=== PATIENT | male | born 1955 | race Two or more races ===

== ENCOUNTER 2024-09-16 14:48 | Emergency (ER) | payer MEDICAID, SELFPAY ==
[2024-09-16 14:49] VITALS: BMI 29.7
[2024-09-16 15:50] VITALS: BP 137/72; PULSE 74; RESP 16; TEMP 37.2; O2SAT 97
--- NOTE | 2024-09-16 17:58 | XR_ITS ---
Examination: CT brain head without contrast. 2-D sagittal coronal reconstructions Date and time of exam:September 16, 2024 1817 hrs. Indications: Dizziness headaches today CTDI: vol (mGy):52.6 DLP: (mGycm):982 Technique: Multiple CT axial sections of the brain have been obtained, 5 mm slice thickness. Contrast has not been administered. 2-D sagittal, coronal reconstructions have been obtained Low dose protocols were performed. One or more of the following dose reduction techniques were used; automated exposure control, adjustment of the mA and/or KV according to patient size, use of iterative reconstruction technique. Findings: No significant ventricular enlargement. Intra-axial or extra-axial hemorrhage density is not seen. No mass effect or midline shift Basal cisterns are not remarkable. Fourth ventricle is midline. Cranial vault intact. Impression: Negative for acute hemorrhage, mass effect or midline shift
--- NOTE | 2024-09-16 18:04 | PD.EDRME ---
Rapid Medical Screening Exam [facility] Arrival date/time: 09/16/24 14:48 Chief Complaint: Dizziness Vital signs: Vital Signs Temperature 99.0 F 09/16/24 15:50 Pulse Rate 74 09/16/24 15:50 Respiratory Rate 16 09/16/24 15:50 Blood Pressure 137/72 H 09/16/24 15:50 Pulse Oximetry (%) 97 09/16/24 15:50 Oxygen Delivery Method Room Air 09/16/24 15:50 [facility] Narrative: 69-year-old patient presents emergency department with complaint of dizziness for the past 2 months. He denies head trauma. He denies focal weakness.
--- NOTE | 2024-09-16 18:07 | EKG_ITS ---
[facility] Test Date: 2024-09-16 Pat Name: NADIA GOMEZ Department: Room: - Gender: Male Entry Level Buyer: : [id number] Requested By: Jaime Monzon Order Number: [id number] Reading MD: Jaime Monzon Measurements Intervals [place] Rate: 66 P: 77 [place]: 154 QRS: 85 QRSD: 95 T: 56 QT: 380 QTc: 399 Interpretive Statements SINUS RHYTHM No previous ECG available for comparison /store/S0/[id number]/ecg/[id number].pdf
[2024-09-16 18:47] LABS: Basophils # (Auto) 0.1 Thou/mm3 (0.0-0.2); Basophils % (Auto) 1 % (0-2.5); Eosinophils # (Auto) 0.1 Thou/mm3 (0.0-0.5); Eosinophils % (Auto) 1 % (0-10); Hematocrit 49.4 % (41.0-53.0); Immature Granulocytes % (Auto) 0 % (0-0); Immature Granulocytes Auto 0.02 Thou/mm3 (0.00-0.00); Lymphocytes # (Auto) 2.3 Thou/mm3 (1.0-4.8); Lymphocytes % (Auto) 24 % (10-50); Mean Corpuscular HGB Conc 34.4 g/dl (31.0-37.0); Mean Corpuscular Hemoglobin 30.4 pg (25.0-35.0); Mean Corpuscular Volume 88 fL (80-100); Monocytes # (Auto) 0.7 Thou/mm3 (0.0-0.8); Monocytes % (Auto) 7 % (0-12); Neutrophils # (Auto) 6.4 Thou/mm3 (1.8-7.7); Neutrophils % (Auto) 67 % (37-80); Nucleated Red Blood Cell % 0 /100 WBC (0); Platelet Count 230 Thou/mm3 (140-440); RDW Standard Deviation 40.9 fL (35.1-43.9); Red Blood Count 5.59 Miln/mm3 (4.50-5.90); White Blood Count 9.5 Thou/mm3 (3.8-10.6)
[2024-09-16 19:09] LABS: Alanine Aminotransferase 13 U/L (10-49); Albumin, Serum 4.8 gm/dL (3.4-4.8); Albumin/Globulin Ratio 1.7 (1.2-2.2); Alkaline Phosphatase 90 U/L (46-116); Anion Gap 6 (7-16); Aspartate Amino Transferase 14 U/L (0-34); BUN/Creatinine Ratio 18 Ratio (12-20); Bilirubin,Total 2.4 mg/dL (0.3-1.2); Blood Urea Nitrogen 16 mg/dL (9-23); Calcium 9.5 mg/dL (8.3-10.6); Calcium (Corrected) 9.5 mg/dL (8.5-10.1); Carbon Dioxide 28.7 mMol/L (20.0-31.0); Chloride 104 mMol/L (98-107); Creatinine (Component) 0.9 mg/dL (0.6-1.3); Globulin 2.8 gm/dL (2.3-3.5); Glucose 99 mg/dL (74-106); Osmolality,Calculated 278 (275-295); Potassium 4.3 mMol/L (3.4-5.1); Sodium 139 mMol/L (136-145); Total Protein 7.6 gm/dL (5.7-8.2); Troponin I < 0.002 ng/mL (0.0-0.045); eGFR > 60 See Note
--- NOTE | 2024-09-16 19:46 | PRELIM_ITS ---
CT scan of the head without intravenous contrast (axial sections with sagittal and coronal reformats) September 16, 2024 1817 hours Clinical history: dizziness Comparison: No prior study is available for comparison. Findings:There is no evidence of intracranial hemorrhage, mass effect or midline shift. T here are periventricular white matter hypodensities, compatible with chronic small vessel ischemia. T here is moderate volume loss. The calvarium is unremarkable. There is moderate mucosal thickening in the right maxillary sinus. The mastoid air cells and the other visualized paranasal sinuses are clear .Impression:No evidence of intracranial hemorrhage, mass effect or midline shift.Periventricular equipment scheduler italo small vessel ischemia and volume loss. Report Electronically Signed By: Pushpa Osorio 09/16/2024 7:45 :58 PM [EST]
[2024-09-16 19:51] VITALS: BP 123/73; PULSE 66; RESP 19; TEMP 37; O2SAT 95
[2024-09-16 23:45] VITALS: BP 128/76; PULSE 89; RESP 18; TEMP 37.1; O2SAT 97
[2024-09-17 00:28] LABS: Collection Type, Urine Clean Catch; RBC,Urine 0 /hpf (0-3); WBC,Urine 0 /hpf (0-5)
[2024-09-17 00:35] LABS: Bilirubin,Urine Negative (Negative); Blood,Urine Negative (Negative); Clarity,Urine Clear (Clear/Hazy); Color,Urine Yellow (Lt Yel-Yel); Glucose, Urine Negative (Negative); Ketones,Urine 1+ (Negative); Leukocyte Esterase,Urine Negative (Negative); Nitrite,Urine Negative (Negative); Protein,Urine Trace (Neg - Trace); Specific Gravity,Urine 1.029 (1.001-1.035); Squamous Epithelial Cell,Urine 1 /hpf (0-5)
--- NOTE | 2024-09-17 01:36 | PD.EDDIZZY ---
ED Dizzyness RME/HPI General Chief Complaint: Dizziness Stated Complaint: DIZZINESS, HEADACHE, NAUSEA Time Seen by Provider: 09/17/24 01:36 Arrival date/time: 09/16/24 14:48 69 year old male present to emergency room with c/o of dizziness, headache today . pt has history fo vertigo and takes meclazine as need. LOCATION: head SEVERITY: Symptoms are described as being severe with limitations on activities of daily living CONTEXT: The patient is unable to identify any inciting events. DURATION/TIMING: The symptoms started approximately 1 day ASSOCIATED SYMPTOMS: The patient is unable to identify any other associated symptoms. MODIFYING FACTORS: The patient is unable to identify any alleviating or aggravating symptoms. PERTINENT ROS: no fevers, no cough, no pleuritic pain, no ripping or tearing sensations, denies any lower extremity edema and no unilateral swelling, no chest pain/shortness of breath no diarrhea, no rash no loc/syncope episode no abd/back pain no dsyuria,urgency,frequency REVIEW OF SYSTEMS: See History of Present Illness - with the exception of those mentioned in the history of present illness, all other systems reviewed and reported as negative GENERAL: In general the patient is awake, interactive, in an emergency department gurney. HEAD/EYES/EARS/NOSE/THROAT: + right ear + excessive cerumen wax, left ear wnl, TM intact normo-cephalic, atraumatic, mucus membranes are moist, anicteric, palpebral conjunctiva is pink, trachea is midline. CARDIOVASCULAR: regular rate and regular rhythm, no murmurs, heart sounds are not distant, strong pulses in all four extremities that are equal and symmetric bilateral upper and lower extremities, normal capillary refill. CHEST/PULMONARY: normal chest rise and fall, good air movement, clear to auscultation bilaterally, normal inspiratory to expiratory ratios without evidence of respiratory distress. NECK: No midline/Paraspinal tenderness, no step off ROM/Strenght intact No Kernig and bruzinski sign. No trauma ABDOMEN: soft, not tender, no masses appreciated BACK: normal range of motion without pain. NEUROLOGICAL: cranio-facial features are symmetric, moves all four extremities equally without obvious limitations or weakness. EXTREMITY: no tenderness to palpation over the long bones or large joints of the bilateral upper and lower extremities, no joint swelling, no joint erythema, no signs of trauma, no unilateral leg swelling and no peripheral edema. SKIN: warm, dry, well-perfused, no jaundice, no rash, no telangiectasias or petechia. PSYCH: calm, cooperative, no evidence of psychosis or agitation RME / HPI RME / HPI Narrative: 69-year-old patient presents emergency department with complaint of dizziness for the past 2 months. He denies head trauma. He denies focal weakness. Related Data Home Medications ?Medication ?Instructions ?Recorded ?Confirmed Levothyroxine * (SYNTHROID *) 50 mcg PO QDAY #0 tabs 06/02/17 Previous Rx's ?Medication ?Instructions ?Recorded Hydrocodone/Acetaminophen * (NORCO 1 tab PO Q6H PRN ABDOMINAL PAIN 06/03/17 5/325 *) #30 tabs meclizine 25 mg tablet 25 mg PO BID PRN dizziness #30 tabs 09/17/24 Allergies Allergy/AdvReac Type Severity Reaction Status Date / Time No Known Allergies Allergy Verified 09/16/24 14:49 Course Course Course Narrative: Based on History, Exam, and Findings, presentation not consistent with syncope, seizure, stroke, meningitis, symptomatic anemia (gastrointestinal bleed), Increased ICP (cerebral tumor/mass), ICH. Additionally, I have a low suspicion for AOM, labyrinthitis, or other infectious process. right ear irrigation, improved symptoms Reassessment: Prior to discharge symptoms controlled, patient well appearing. Disposition:? Discharge. Strict return precautions discussed w/ full understanding. Advise follow up with primary care provider within 24-48 hours.? Quality Measures none Orders Category Date Time Status ED Ear Irrigation X1 Care 09/17/24 01:39 Active EKG (ED ONLY) *Do not use* NOW Care 09/16/24 18:[address] head/brain wo con Stat Exams 09/16/24 17:58 Completed EKG (ED Only) Stat Exams 09/16/24 18:07 Draft CBC Stat Lab 09/16/24 18:26 Completed Comprehensive Metabolic Panel Stat Lab 09/16/24 18:26 Completed Troponin I Stat Lab 09/16/24 18:26 Completed Urinalysis Stat Lab 09/17/24 00:09 Completed Urine Culture Stat Lab 09/17/24 00:09 Received Vital Signs Vital signs: Vital Signs Temperature 99.0 F 09/16/24 15:50 Pulse Rate 74 09/16/24 15:50 Respiratory Rate 16 09/16/24 15:50 Blood Pressure 137/72 H 09/16/24 15:50 Pulse Oximetry (%) 97 09/16/24 15:50 Oxygen Delivery Method Room Air 09/16/24 15:50 Procedures -ED EKG Interpretation #1: Date of EK09/17/24 Rate: 66 Interpretation: Reviewed by me EKG Impression: Normal sinus rhythm, No acute ST-T changes, No ectopy and No ischemic changes Dizziness Patient data External records reviewed:: [facility] previous records Clinical information provided by:: patient Social determinants that could affect healthcare access:: none Patient has the following chronic illnesses:: as stated in chart How is presenting disease/condition affected by chronic disease/condition?: uneffected by Evaluation data The following diagnostics were reviewed and interpreted by me:: lab results, radiology exam(s) and EKG tracing(s) Lab and/or radiology exams considered but not ordered:: none Interpretation Summary: ct: no acute findings cbc/cmp/trop wnl Medications / Prescriptions Medications or Prescriptions considered but not ordered:: none Medication administrations:: none Consultations Consultation(s) initiated? (list below): No Diagnosis Most likely diagnosis given after review of the tests above:: vertigo, Admission Indicated Admission indicated?: not indicated Admission Request Was there a request for admission?: No Disposition Plan Disposition Plan: Discharge Discharge Attestation Discharge Attestation: The patient and all family members were given an opportunity to ask questions and understood the discharge instructions. Discharge instructions specifically effects, indications for sooner follow up or return to the emergency department, and the expected course of current diagnosis. Patient condition: Stable Discharge Plan Plan Patient Disposition: HOME (Self Care) Prescriptions/Referrals Prescriptions/Med Rec: New meclizine 25 mg tablet 25 mg PO BID PRN (Reason: dizziness) Qty: 30 0RF No Action Levothyroxine * (SYNTHROID *) 50 MCG tablet 50 mcg PO QDAY Qty: 0 Hydrocodone/Acetaminophen * (NORCO 5/325 *) 1 TAB tablet 1 tab PO Q6H PRN (Reason: ABDOMINAL PAIN) Qty: 30 0RF Referrals: Theron Pagan MD [Primary Care Provider] - In 1 week Problem List Clinical Impression: Vertigo, Excessive cerumen in right ear canal Patient/Caregiver Discharge Instructions Education Materials: ED Dizziness, Uncertain Cause Print Language: Slovenian Stand Alone Forms: Dahlia Award Info., Patient Portal Info Letter
== END 2024-09-17 02:06 | disposition home or self-care (01) ==
PROVIDERS: Emergency Provider Emergency Medicine; PCP Family Medicine
DX: R42 Dizziness and giddiness (principal); H61.21 Impacted cerumen, right ear
CPT/HCPCS: 36415; 70450; 80053; 81001; 84484; 85025; 87077; 87086; 87186; 93005; 99284

== ENCOUNTER 2024-10-15 23:08 | Emergency (ER) | payer MEDICAID, SELFPAY ==
[2024-10-15 23:10] VITALS: BMI 27.6
[2024-10-15 23:43] VITALS: BP 151/77; PULSE 80; RESP 18; TEMP 37.2; O2SAT 95
[2024-10-16] MEDS: KETOROLAC INJ 60 MG/2 ML VIAL 30 MG IM (00:36)
[2024-10-16 00:57] LABS: Basophils % (Auto) 0 % (0-2.5); Eosinophils # (Auto) 0.1 Thou/mm3 (0.0-0.5); Eosinophils % (Auto) 1 % (0-10); Hematocrit 47.2 % (41.0-53.0); Hemoglobin 16.6 g/dL (13.5-16.0); Immature Granulocytes % (Auto) 0 % (0-0); Immature Granulocytes Auto 0.03 Thou/mm3 (0.00-0.00); Lymphocytes # (Auto) 1.1 Thou/mm3 (1.0-4.8); Lymphocytes % (Auto) 10 % (10-50); Mean Corpuscular HGB Conc 35.2 g/dl (31.0-37.0); Mean Corpuscular Volume 88 fL (80-100); Monocytes # (Auto) 0.6 Thou/mm3 (0.0-0.8); Monocytes % (Auto) 5 % (0-12); Neutrophils # (Auto) 9.2 Thou/mm3 (1.8-7.7); Neutrophils % (Auto) 84 % (37-80); Nucleated Red Blood Cell % 0 /100 WBC (0); Platelet Count 236 Thou/mm3 (140-440); RDW Standard Deviation 42.5 fL (35.1-43.9); Red Blood Count 5.35 Miln/mm3 (4.50-5.90); White Blood Count 10.9 Thou/mm3 (3.8-10.6)
[2024-10-16 01:15] LABS: Alanine Aminotransferase 13 U/L (10-49); Albumin, Serum 4.6 gm/dL (3.4-4.8); Albumin/Globulin Ratio 1.5 (1.2-2.2); Alkaline Phosphatase 82 U/L (46-116); Anion Gap 8 (7-16); Aspartate Amino Transferase 14 U/L (0-34); BUN/Creatinine Ratio 23 Ratio (12-20); Bilirubin,Total 2.3 mg/dL (0.3-1.2); Blood Urea Nitrogen 18 mg/dL (9-23); Calcium 9.5 mg/dL (8.3-10.6); Calcium (Corrected) 9.5 mg/dL (8.5-10.1); Carbon Dioxide 27.6 mMol/L (20.0-31.0); Chloride 104 mMol/L (98-107); Creatinine (Component) 0.8 mg/dL (0.6-1.3); Estimated Creatinine Clearance 83.7 mL/min (>60); Glucose 122 mg/dL (74-106); Lipase 49 U/L (12-53); Osmolality,Calculated 282 (275-295); Potassium 4.1 mMol/L (3.4-5.1); Sodium 140 mMol/L (136-145); Total Protein 7.6 gm/dL (5.7-8.2); eGFR > 60 See Note
--- NOTE | 2024-10-16 01:44 | PD.EDRME ---
Rapid Medical Screening Exam [facility] Arrival date/time: 10/15/24 23:08 69-year-old male presents emergency department complaining of umbilical hernia pain and increase in size that he has been unable to reduce. Chief Complaint: Abdominal Pain Time Seen by Provider: 10/15/24 23:39 Vital signs: Vital Signs Temperature 99.0 F 10/15/24 23:43 Pulse Rate 80 10/15/24 23:43 Respiratory Rate 18 10/15/24 23:43 Blood Pressure 151/77 H 10/15/24 23:43 Pulse Oximetry (%) 95 10/15/24 23:43 Oxygen Delivery Method Aerosol Mask 10/15/24 23:43 Vital signs reviewed by provider: Yes
[2024-10-16 06:07] VITALS: BP 118/78; PULSE 69; RESP 19; TEMP 36.7; O2SAT 96
[2024-10-16 06:16] VITALS: BP 132/71; PULSE 64
--- NOTE | 2024-10-16 06:29 | XR_ITS ---
Examination: CT abdomen and pelvis without contrast. Coronal 3-D reconstructions. Sagittal 2-D reconstructions. Date and time of exam:October 16, 2024 at 0648 hours INDICATIONS: Abdominal pain umbilical mass today, clinical diagnosis incarcerated umbilical hernia CTDI: vol (mGy): 7.02 DLP: (mGycm): 421 Technique: Axial images of the abdomen have been obtained, 3 mm slice thickness Intravenous contrast material has not been administered. Low dose protocols were performed. One or more of the following dose reduction techniques were used; automated exposure control, adjustment of the mA and/or KV according to patient size, use of iterative reconstruction technique. Findings: No focal liver or splenic lesions Absent gallbladder No pancreatic or adrenal mass No renal or ureteral calculi, no hydronephrosis Anterior right lateral abdominal wall 17 mm hernia defect containing incarcerated fat No bowel present in this hernia defect No bowel obstruction Normal appendix No diverticulitis Fat-containing right inguinal hernia defect Large left inguinal hernia defect, 28 mm, containing sigmoid colon but no definite incarcerated bowel. IMPRESSION: Anterior right lateral abdominal wall 17 mm hernia defect containing incarcerated fat No bowel present in this hernia defect Fat-containing right inguinal hernia defect 28 mm left inguinal hernia defect containing sigmoid colon but no definite incarcerated bowel Recommend surgical evaluation
--- NOTE | 2024-10-16 08:08 | EDNOTE_ITS ---
ED Abdominal Pain RME/HPI General Chief Complaint: Abdominal Pain Stated complaint: UMBILICAL HERNIA PAIN Time seen by provider: 10/15/24 23:39 Arrival date/time: 10/15/24 23:08 RME / HPI RME / HPI narrative: 10/15/24 23:08 69-year-old male presents emergency department complaining of umbilical hernia pain and increase in size that he has been unable to reduce. DR. VILLALBA MAIN ED EVALUATION 69 year old male with history of radical prostatectomy 2 years ago and has had an umbilical and inguinal hernia since presents to the ED for evaluation of umbilical hernia pain beginning yesterday. Reportedly felt the hernia come out yesterday and is usually able to reduce. However, yesterday states he was unable to and the hernia was accompanied by moderate-severe pain that radiated to his back. Reports while in the ED the pain improved and during my evaluation states he has no pain. Denies fevers, chills, nausea, vomiting, diarrhea, constipation. No other complaints. Related Data Home Medications ?Medication ?Instructions ?Recorded ?Confirmed Levothyroxine * (SYNTHROID *) 50 mcg PO QDAY #0 tabs 0 06/02/17 Previous Rx's ?Medication ?Instructions ?Recorded Hydrocodone/Acetaminophen * (NORCO 1 tab PO Q6H PRN AB DOMINAL PAIN 06/03/17 5/325 *) #30 tabs meclizine 25 mg tablet 25 mg PO BID PRN dizziness # 30 tabs 09/17/24 Allergies Allergy/AdvReac Type Severity Reaction Status Date / Time No Known Allergies Allergy Verified 10/15/24 23:17 Review of Systems Review of Systems Narrative Review of Systems: Gen: No fever, no chills, no weight loss EYES: No discharge, no visual changes, no pain HEENT: No ear pain, no congestion, no sore throat PULM: no shortness of breath, no cough, no congestion CV: No chest pain, no dyspnea on exertion, no palpitations, no chest tightness GI: No nausea, no vomiting, no diarrhea, + pain, no constipation : No frequency, no urgency,? no dysuria Musc/skel: No joint pain Skin: No rash, no ecchymosis, no lesions Neuro: No weakness, no headache Past Medical History Past Medical History CARDIAC: Negative Congestive Heart Failure RESPIRATORY: Negative Chronic Obstructive Pulmonary Disease (COPD) GENITOURINARY: Negative Renal Disease ENDOCRINE: Negative Diabetes Mellitus Type 1 or Diabetes Mellitus Type 2 Social History SMOKING STATUS: Never smoker ED Exam Narrative Physical exam: GENERAL APPEARANCE: AxOx4, no obvious distress, nontoxic appearing HEENT: NC, AT. MMM. EOMI, clear conjunctiva, oropharynx clear. NECK: Supple without lymphadenopathy. No stiffness or restricted ROM. HEART: Normal rate and regular rhythm, normal S1/S1, no m/r/g LUNGS: CTAB, moving air well. No crackles or wheezes are heard. ABDOMEN: Soft, nontender, nondistended with good bowel sounds heard. Umbilical hernia that is reducible, no redness, no tenderness, no signs of incarceration. Also noted to have a left inguinal hernia that is reducible, without any redness or tenderness. BACK: No midline C/T/L spine pain or deformity, No CVAT, no obvious deformity. EXTREMITIES: Without cyanosis, clubbing or edema. MUSCULOSKELETAL: FROM of all major joints, no chest tenderness NEUROLOGICAL: Grossly nonfocal. Alert and oriented, moving all 4 extremities. CN not formally tested but appear grossly intact. Skin: Warm and dry without any rash. Course Quality Measures none Orders Category Date Time Status CT abdomen pelvis wo con Stat Exams 10/16/24 06:29 Completed CBC Stat Lab 10/15/24 00:29 Completed CMP [Comprehensive Metabolic Panel] Stat Lab 10/15/24 00:29 Completed Lipase Stat Lab 10/15/24 00:29 Completed Ketorolac Inj [Toradol Inj] Med 10/15/24 23:59 Discontinued 30 mg IM X1 ONE Reevaluation(s) Reevaluation #1: Patient at this time reports no pain. Patient remains clinically stable throughout the emergency department visit. We reviewed all the results, analysis, and treatment plans. Patient is amenable to discharge. Strict return precautions were outlined. Patient was discharged in stable condition. Time: 08:15 Vital Signs Vital signs: Vital Signs Temperature 99.0 F 10/15/24 23:43 Pulse Rate 80 10/15/24 23:43 Respiratory Rate 18 10/15/24 23:43 Blood Pressure 151/77 H 10/15/24 23:43 Pulse Oximetry (%) 95 10/15/24 23:43 Oxygen Delivery Method Aerosol Mask 10/15/24 23:43 Pulse ox is 96% on room air which is adequate. Abdominal Pain MDM MDM Narrative MDM Narrative:: IKia am scribing for and in the presence of Dr. Villalba. Patient data External records reviewed:: [facility] previous records (I reviewed ED visit on 09/17/2024) Clinical information provided by:: patient Social determinants that could affect healthcare access:: none Patient has the following chronic illnesses:: radical prostatectomy 2 years ago and has had an umbilical hernia since How is presenting disease/condition affected by chronic disease/condition?: exacerbated by Evaluation data The following diagnostics were reviewed and interpreted by me:: lab results and radiology exam(s) Lab and/or radiology exams considered but not ordered:: None Interpretation Summary: Ordering Physician: Dori MORGAN),Jose JOHNSON Date of Service: 10/16/24 Procedure(s): CT abdomen pelvis wo con Accession Number(s): [id number] cc: J Carlos Christian PA-C; Dori MORGAN),Jose JOHNSON; Flex Bourgeois MD~ Examination: CT abdomen and pelvis without contrast. Coronal 3-D reconstructions. Sagittal 2-D reconstructions. Date and time of exam:October 16, 2024 at 0648 hours INDICATIONS: Abdominal pain umbilical mass today, clinical diagnosis incarcerated umbilical hernia CTDI: vol (mGy): 7.02 DLP: (mGycm): 421 Technique: Axial images of the abdomen have been obtained, 3 mm slice thickness Intravenous contrast material has not been administered. Low dose protocols were performed. One or more of the following dose reduction techniques were used; automated exposure control, adjustment of the mA and/or KV according to patient size, use of iterative reconstruction technique. Findings: No focal liver or splenic lesions Absent gallbladder No pancreatic or adrenal mass No renal or ureteral calculi, no hydronephrosis Anterior right lateral abdominal wall 17 mm hernia defect containing incarcerated fat No bowel present in this hernia defect No bowel obstruction Normal appendix No diverticulitis Fat-containing right inguinal hernia defect Large left inguinal hernia defect, 28 mm, containing sigmoid colon but no definite incarcerated bowel. IMPRESSION: Anterior right lateral abdominal wall 17 mm hernia defect containing incarcerated fat No bowel present in this hernia defect Fat-containing right inguinal hernia defect 28 mm left inguinal hernia defect containing sigmoid colon but no definite incarcerated bowel Recommend surgical evaluation Dictated By:Flex Bourgeois MD Signed By:<Electronically signed by Flex Bourgeois MD in OV>10/16/24 0711 Medications / Prescriptions Medications or Prescriptions considered but not ordered:: None Medication administrations:: Medication Administration History Discontinued Medications Ketorolac Tromethamine (Ketorolac Inj 60 Mg/2 Ml Vial) 30 mg IM X1 ONE Stop: 10/16/24 00:00 Last Admin: 10/16/24 00:36 Dose: 30 mg Documented By: KF See above Consultations Consultation(s) initiated? (list below): No Diagnosis Differential diagnosis abdominal pain: abdominal pain, constipation, diverticulitis, small bowel obstruction and other (Umbilical hernia, inguinal hernia, incarcerated hernia ) Most likely diagnosis given after review of the tests above:: Inguinal hernia Admission Indicated Admission indicated?: not indicated Admission Request Was there a request for admission?: No Disposition Plan Disposition Plan: Discharge Discharge Attestation Discharge Attestation: The patient and all family members were given an opportunity to ask questions and understood the discharge instructions. Discharge instructions specifically effects, indications for sooner follow up or return to the emergency department, and the expected course of current diagnosis. Patient condition: Stable Discharge Plan Plan Patient Disposition: HOME (Self Care) Prescriptions/Referrals Prescriptions/Med Rec: No Action Levothyroxine * (SYNTHROID *) 50 MCG tablet 50 mcg PO QDAY Qty: 0 Hydrocodone/Acetaminophen * (NORCO 5/325 *) 1 TAB tablet 1 tab PO Q6H PRN (Reason: ABDOMINAL PAIN) Qty: 30 0RF meclizine 25 mg tablet 25 mg PO BID PRN (Reason: dizziness) Qty: 30 0RF Referrals: J Carlos Christian PA-C [Primary Care Provider] - In 1 week Problem List Clinical Impression: Inguinal hernia Patient/Caregiver Discharge Instructions Education Materials: ED Hernia (Adult) Additional Instructions: Seguimiento con durham m?dico de atenci?n primaria. Regrese al departamento de emergencias antes si los s?ntomas empeoran o si nota algo nuevo, Print Language: Albanian Stand Alone Forms: Dahlia Award Info., Patient Portal Info Letter
[2024-10-16 08:17] VITALS: BP 129/71; PULSE 66; RESP 17; TEMP 36.7; O2SAT 96
== END 2024-10-16 08:25 | disposition home or self-care (01) ==
PROVIDERS: Emergency Provider Emergency Medicine; PCP Family Medicine
DX: K40.90 Unilateral inguinal hernia, without obstruction or gangrene, not specified as recurrent (principal)
CPT/HCPCS: 36415; 74176; 80053; 81001; 83690; 85025; 96372; 99284; J1885

== ENCOUNTER 2025-07-08 17:21 | Inpatient (IN) | payer MEDICAID, SELFPAY ==
[2025-07-08] VITALS (12 sets, daily range): BP systolic 153–179; BP diastolic 80–103; PULSE 76–99; RESP 12–19; TEMP 36.6–37.6; O2SAT 95–98
--- NOTE | 2025-07-08 17:49 | PD.EDRME ---
Rapid Medical Screening Exam RME Arrival date/time: 07/08/25 17:21 This is a 70-year-old male that comes into the emergency room with complaints of right inguinal area pain. Patient states he has bilateral inguinal hernias and he is usually able to reduce them on his own. Patient states the 1 on his right is bothering him. Patient also complains of dysuria. I have greeted and performed a focused initial assessment of this patient. Initial appropriate labs ordered at this time. A comprehensive ED assessment and evaluation of the patient and analysis of all test and completion of medical decision making process will be conducted by additional ED provider. Chief Complaint: General Adult/Misc Complain Time Seen by Provider: 07/08/25 17:23 Vital signs: Vital Signs Temperature 99.7 F 07/08/25 17:28 Pulse Rate 98 07/08/25 17:28 Respiratory Rate 18 07/08/25 17:28 Blood Pressure 168/80 H 07/08/25 17:28 Pulse Oximetry (%) 95 07/08/25 17:28 Oxygen Delivery Method Room Air 07/08/25 17:28 Exam: Alert and oriented, pain to palpation to right inguinal area. GCS 15 Clinical Impression: Incarcerated right inguinal hernia, UTI
[2025-07-08 18:12] LABS: Basophils # (Auto) 0.0 Thou/mm3 (0.0-0.2); Basophils % (Auto) 0 % (0-2.5); Eosinophils # (Auto) 0.0 Thou/mm3 (0.0-0.5); Eosinophils % (Auto) 0 % (0-10); Hematocrit 47.1 % (41.0-53.0); Hemoglobin 16.8 g/dL (13.5-16.0); Immature Granulocytes Auto 0.04 Thou/mm3 (0.00-0.00); Lymphocytes # (Auto) 0.9 Thou/mm3 (1.0-4.8); Lymphocytes % (Auto) 7 % (10-50); Mean Corpuscular HGB Conc 35.7 g/dl (31.0-37.0); Mean Corpuscular Hemoglobin 31.9 pg (25.0-35.0); Mean Corpuscular Volume 89 fL (80-100); Monocytes # (Auto) 0.6 Thou/mm3 (0.0-0.8); Monocytes % (Auto) 5 % (0-12); Neutrophils # (Auto) 10.8 Thou/mm3 (1.8-7.7); Neutrophils % (Auto) 88 % (37-80); Nucleated Red Blood Cell # 0.00 Thou/mm3 (0.00-0.00); Nucleated Red Blood Cell % 0 /100 WBC (0); Platelet Count 232 Thou/mm3 (140-440); RDW Standard Deviation 40.9 fL (35.1-43.9); Red Blood Count 5.27 Miln/mm3 (4.50-5.90); White Blood Count 12.3 Thou/mm3 (3.8-10.6)
--- NOTE | 2025-07-08 18:41 | XR_ITS ---
Examination: CT abdomen and pelvis without contrast. Coronal 3-D reconstructions. Sagittal 2-D reconstructions. Date and time of exam: July 08, 2025, 1904 hours, comparison October 16, 2024 INDICATIONS: Right lower abdomen pain today, bilateral inguinal hernias CTDI: vol (mGy): 8.11 DLP: (mGycm): 451 Technique: Axial images of the abdomen have been obtained, 3 mm slice thickness Intravenous contrast material has not been administered. Low dose protocols were performed. One or more of the following dose reduction techniques were used; automated exposure control, adjustment of the mA and/or KV according to patient size, use of iterative reconstruction technique. Findings: No focal liver or splenic lesions Absent gallbladder Multiple fluid distended small bowel loops 12 mm umbilical hernia containing incarcerated fat Normal appendix No diverticulitis Bilateral inguinal hernias, on the right side containing small bowel and on the left side containing colon Advanced degenerative disc disease L5-S1 IMPRESSION: Small bowel obstruction, likely secondary to incarcerated small bowel in a right inguinal hernia Left inguinal hernia containing colon
--- NOTE | 2025-07-08 18:41 | PD.EDADULT ---
ED General RME/HPI General Chief complaint: General Adult/Misc Complain Stated complaint: SUPRAPUBIC PAIN, 03/22 Time Seen by Provider: 07/08/25 17:23 Arrival date/time: 07/08/25 17:21 CC: Right inguinal hernia pain HPI patient has bilateral inguinal hernias the right side greater than the left, patient said the pain is ongoing for several days but patient has had the hernias for 2 to 3 years. Patient denies chest pain shortness of breath or difficulty breathing. RME / HPI RME / HPI narrative: 07/08/25 17:21 This is a 70-year-old male that comes into the emergency room with complaints of right inguinal area pain. Patient states he has bilateral inguinal hernias and he is usually able to reduce them on his own. Patient states the 1 on his right is bothering him. Patient also complains of dysuria. I have greeted and performed a focused initial assessment of this patient. Initial appropriate labs ordered at this time. A comprehensive ED assessment and evaluation of the patient and analysis of all test and completion of medical decision making process will be conducted by additional ED provider. Exam: Alert and oriented, pain to palpation to right inguinal area. GCS 15 Impression: Incarcerated right inguinal hernia, UTI Related Data Home Medications ?Medication ?Instructions ?Recorded ?Confirmed Levothyroxine * (SYNTHROID *) 50 mcg PO QDAY #0 tabs 06/02/17 Previous Rx's ?Medication ?Instructions ?Recorded Hydrocodone/Acetaminophen * (NORCO 1 tab PO Q6H PRN ABDOMINAL PAIN 06/03/17 5/325 *) #30 tabs meclizine 25 mg tablet 25 mg PO BID PRN dizziness #30 tabs 09/17/24 Allergies Allergy/AdvReac Type Severity Reaction Status Date / Time No Known Allergies Allergy Verified 07/08/25 17:23 Review of Systems Review of Systems Narrative Review of Systems: GEN: No fever, no chills, no weight loss EYES: No discharge, no visual changes, no pain HEENT: No ear pain, no congestion, no sore throat PULM: No shortness of breath, no cough, no congestion CV: No chest pain, no dyspnea on exertion, no palpitations GI: No nausea, no vomiting, no diarrhea, no pain, no constipation : No frequency, no urgency, no dysuria MUSC/SKEL: No joint pain, no back pain SKIN: No rash PSYCH: No hallucinations, no depression HEME/LYMPH: No easy bleeding or bruising tendencies NEURO: No weakness, no headache Past Medical History Past Medical History CARDIAC: Negative Congestive Heart Failure RESPIRATORY: Negative Chronic Obstructive Pulmonary Disease (COPD) GENITOURINARY: Negative Renal Disease ENDOCRINE: Negative Diabetes Mellitus Type 1 or Diabetes Mellitus Type 2 Social History SMOKING STATUS: Never smoker ED Exam Narrative Physical exam: [General: In moderate discomfort but not in any acute distress Head normocephalic HEENT: Within acceptable limits Neck is supple nontender Chest equal chest rise nontender to palpation Respiratory: Clear to auscultation no wheezes crackles or rubs CV: Rate rhythm is regular no murmurs rubs or clicks Abdomen is flat, with bulging at the pubis mounds, firm in nature tender to palpation no erythema no open lesions. Both left and right aspect of pubis mons are bump bulging. Right side is firm left side is soft both are nonreproducible. Back: No CVA tenderness no spinous process tenderness from cervical spine thoracic and lumbar spine Skin: Intact no petechiae rash induration ulceration or crepitus Extremities: Moving all extremity against resistance cap refill less than 2 seconds neurosensory intact Neuro: Awake alert oriented x3 Glascow coma 15 no focal deficits] Course Course Course Narrative: Patient is case discussed with Dr. Farrar the surgeon, she was informed of the patient's clinical condition presentation laboratory results and imaging, given the patient has an SBO secondary to an incarcerated hernia she agrees to accept the patient as consult and admit the patient to the hospitalist. Patient is in agreement with this plan patient's last meal was at 11 AM. He is currently n.p.o. and will probably go to the [facility]. Patient's case presented to the resident for Dr. Rothman who agrees to accept the patient for admission. Quality Measures none Orders Category Date Time Status COVID-19 Screening Questionnaire NOW Care 07/08/25 19:39 Completed Decision to Admit X1 Care 07/08/25 19:39 Completed EKG (ED ONLY) *Do not use* NOW Care 07/08/25 19:49 Completed NG / OG Tube to LIS NOW Care 07/08/25 19:37 Completed NPO NOW Care 07/08/25 19:39 Completed Saline [Insert IV] NOW Care 07/08/25 19:37 Completed Consult to General Surgery Stat Cons 07/08/25 19:38 Ordered Diet NPO (NOW) Diet 07/08/25 19:[address] abdomen pelvis wo con Stat Exams 07/08/25 18:41 Completed EKG (ED Only) Stat Exams 07/08/25 19:49 Draft XR chest 1V Stat Exams 07/08/25 19:37 Completed CBC Stat Lab 07/08/25 18:01 Completed Comprehensive Metabolic Panel Stat Lab 07/08/25 18:01 Completed Lactic Acid [Lactate (Lactic Acid)] Stat Lab 07/08/25 20:51 Completed Lipase Stat Lab 07/08/25 18:01 Completed PT [Prothrombin Time with INR] Stat Lab 07/08/25 18:01 Completed PTT [Partial Thromboplastin Time] Stat Lab 07/08/25 18:01 Completed Urinalysis, C/S if Indicated Stat Lab 07/08/25 18:46 Completed Bupivacaine Mpf 0.5% [Sensorcaine-Mpf Inj 0.5%] Med 07/08/25 20:22 Discontinued 30 ml .ROUTE .STK-MED ONE Morphine* Inj Med 07/08/25 19:39 Discontinued 4 mg IVP X1 ONE Ondansetron Inj [Zofran Inj] Med 07/08/25 19:39 Discontinued 4 mg IVP X1 ONE Sodium Chloride 0.9% 1000 ml [Ns] 1,000 ml Med 07/08/25 19:38 Active IV 100 mls/hr Vital Signs Vital signs: Vital Signs Temperature 99.7 F 07/08/25 17:28 Pulse Rate 98 07/08/25 17:28 Respiratory Rate 18 07/08/25 17:28 Blood Pressure 168/80 H 07/08/25 17:28 Pulse Oximetry (%) 95 07/08/25 17:28 Oxygen Delivery Method Room Air 07/08/25 17:28 Discharge Plan Plan Patient Disposition: Other Care w/in Hosp (SDC/RED) Patient condition on transfer: Stable Problem List Clinical Impression: Incarcerated inguinal hernia, SBO (small bowel obstruction), Abdominal pain PA/MARTIAL ARTS INSTRUCTOR Supervising Physician PA/MARTIAL ARTS INSTRUCTOR Supervising Physician: Jose Tim ENP [facility] Clinical Information Provided by: patient Medical Records reviewed [facility] Meds/Rx considered, not ordered None Labs/Rad/Tests considered, not ordered None Chronic Illness/Social Conditions Explain: Inguinal hernias hypothyroidism EKG Interpretation EKG #1: EKG Interpretation: EKG performed at 2030 shows a ventricular rate of 73 LA interval 147 QRS of 100 QTc of 408 there is normal sinus rhythm. Labs Labs: interpreted by me Lab(s) Interpretation(s): CBC shows a mild leukocytosis of 12.3 hemoglobin of 16.8 hematocrit of 47.1 no thrombocytopenia Imaging Imaging interpretation: interpreted by me Medication Administration(s) Medication Administration History Acetaminophen (Acetaminophen 325 Mg Tablet) 650 mg PO Q6H PRN PRN Reason: Fever >100.3 Stop: 08/07/25 20:31 Acetaminophen (Acetaminophen 325 Mg Tablet) 650 mg PO Q6H PRN PRN Reason: PAIN SCALE 1-3 (mild Stop: 08/07/25 20:31 Heparin Sodium (Porcine) (Heparin Sod Inj 5000 Unit/Ml Vial) 5,000 unit SC Q8HR GILSON On Hold: 07/08/25 22:00 Resume: 07/09/25 09:00 Stop: 07/22/25 21:59 Sodium Chloride (Ns) 1,000 mls @ 100 mls/hr IV .Q10H GILSON Stop: 08/07/25 19:37 Last Admin: 07/08/25 20:26 Dose: 100 mls/hr Documented By: GEORGE Levothyroxine Sodium (Levothyroxine Sodium 100 Mcg Tablet) 100 mcg PO ACBR GILSON Stop: 08/08/25 05:59 Lisinopril (Lisinopril 2.5 Mg Tablet) 10 mg PO QDAY GILSON Stop: 08/08/25 08:59 Morphine Sulfate (Morphine Sulf Inj 4 Mg/Ml Vial) 2 mg IVP Q6HR PRN PRN Reason: pain 4-8 Stop: 07/13/25 20:35 Ondansetron HCl (Ondansetron Inj 2 Mg/Ml Inj 2 Ml) 4 mg IVP Q6H PRN; Protocol PRN Reason: NAUSEA OR VOMITING Stop: 08/07/25 20:31 Discontinued Medications Bupivacaine HCl (Bupivacaine Mpf 0.5% 30 Ml Vial) Confirm Administered Dose 30 ml .ROUTE .STK-MED ONE Stop: 07/08/25 20:23 Cefoxitin Sodium (Cefoxitin Sod Inj 1 Gm Vial) Confirm Administered Dose 2 gm .ROUTE .STK-MED ONE Stop: 07/08/25 21:26 Dexamethasone Sodium Phosphate (Dexamethasone Sod Phos Inj 10 Mg/Ml Vial) Confirm Administered Dose 10 mg .ROUTE .STK-MED ONE Stop: 07/08/25 20:55 Fentanyl Citrate (Fentanyl Cit Inj 50 Mcg/Ml Amp 2ml) Confirm Administered Dose 100 mcg .ROUTE .STK-MED ONE Stop: 07/08/25 20:55 Fentanyl Citrate (Fentanyl Cit Inj 50 Mcg/Ml Amp 2ml) Confirm Administered Dose 100 mcg .ROUTE .STK-MED ONE Stop: 07/08/25 21:55 Acetaminophen (Ofirmev Inj) Confirm Administered Dose 100 mls @ ud IV .STK-MED ONE Stop: 07/08/25 21:30 Lidocaine HCl (Lidocaine Inj Pf 1% 2 Ml Vial) Confirm Administered Dose 2 ml .ROUTE .STK-MED ONE Stop: 07/08/25 20:55 Metoprolol Tartrate (Metoprolol Tartrate Inj 1 Mg/Ml Amp 5 Ml) Confirm Administered Dose 5 mg .ROUTE .ST-MED ONE Stop: 07/08/25 21:43 Morphine Sulfate (Morphine Sulf Inj 4 Mg/Ml Vial) 4 mg IVP X1 ONE Stop: 07/08/25 19:40 Last Admin: 07/08/25 20:27 Dose: 4 mg Documented By: GEORGE Morphine Sulfate (Morphine Sulf Inj 4 Mg/Ml Vial) Confirm Administered Dose 4 mg .ROUTE .STK-MED ONE Stop: 07/08/25 21:32 Ondansetron HCl (Ondansetron Inj 2 Mg/Ml Inj 2 Ml) 4 mg IVP X1 ONE; Protocol Stop: 07/08/25 19:40 Last Admin: 07/08/25 20:26 Dose: 4 mg Documented By: GEORGE Propofol (Propofol Inj 10 Mg/Ml Vial 20 Ml) Confirm Administered Dose 200 mg IV .STK-MED ONE Stop: 07/08/25 20:55 Rocuronium [place] (Rocuronium Inj 10 Mg/Ml Vial 10 Ml) Confirm Administered Dose 100 mg .ROUTE .STK-MED ONE Stop: 07/08/25 20:55
[2025-07-08 18:52] LABS: Collection Type, Urine Voided
[2025-07-08 19:02] LABS: Amorphous Crystals,Urine Present (Absent); Bilirubin,Urine Negative (Negative); Blood,Urine Trace (Negative); Clarity,Urine Clear (Clear/Hazy); Color,Urine Yellow (Lt Yel-Yel); Culture Indicated,Urine Not Indicated; Glucose, Urine Negative (Negative); Ketones,Urine Negative (Negative); Leukocyte Esterase,Urine Negative (Negative); Nitrite,Urine Negative (Negative); PH,Urine 5.5 (5.0-7.0); Protein,Urine Negative (Neg - Trace); RBC,Urine 2 /hpf (0-3); Specific Gravity,Urine 1.026 (1.001-1.035); Squamous Epithelial Cell,Urine 2 /hpf (0-5); Urobilinogen,Urine 2.0 mg/dL (0.0-1.0); WBC,Urine < 1 /hpf (0-5)
[2025-07-08 19:09] LABS: Alanine Aminotransferase 15 U/L (10-49); Albumin, Serum 4.9 gm/dL (3.4-4.8); Albumin/Globulin Ratio 1.8 (1.2-2.2); Alkaline Phosphatase 95 U/L (46-116); Anion Gap 11 (7-16); Aspartate Amino Transferase 19 U/L (0-34); BUN/Creatinine Ratio 11 Ratio (12-20); Bilirubin,Total 2.0 mg/dL (0.3-1.2); Blood Urea Nitrogen 10 mg/dL (9-23); Calcium 9.6 mg/dL (8.3-10.6); Calcium (Corrected) 9.6 mg/dL (8.5-10.1); Carbon Dioxide 23.1 mMol/L (20.0-31.0); Chloride 109 mMol/L (98-107); Creatinine (Component) 0.9 mg/dL (0.6-1.3); Globulin 2.7 gm/dL (2.3-3.5); Glucose 147 mg/dL (74-106); Lipase 48 U/L (12-53); Osmolality,Calculated 286 (275-295); Potassium 3.9 mMol/L (3.4-5.1); Sodium 143 mMol/L (136-145); Total Protein 7.6 gm/dL (5.7-8.2); eGFR > 60 See Note
--- NOTE | 2025-07-08 19:37 | XR_ITS ---
EXAMINATION: AP chest single view TECHNIQUE: AP portable semiupright chest single view Date and time: July 08, 2025, 1943 hours INDICATIONS: Preop FINDINGS: Minor subsegmental atelectasis left base. Normal heart size. No pneumonia or pulmonary edema IMPRESSION: No pneumonia or pulmonary edema
--- NOTE | 2025-07-08 19:49 | EKG_ITS ---
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
[2025-07-08 19:57] LABS: INR 1.1 (0.9-1.3); Partial Thromboplastin Time 27.5 Seconds (22.0-36.0); Prothrombin Time 11.4 Seconds (9.0-12.2)
[2025-07-08] MEDS: ONDANSETRON INJ 2 MG/ML INJ 2 ML 4 MG IVP (20:26)
[2025-07-08] MEDS: SODIUM CHLORIDE 0.9% 1000 ML 1,000 ML 100 ML IV (20:26)
[2025-07-08] MEDS: MORPHINE SULF INJ 4 MG/ML VIAL IVP (20:27)
--- NOTE | 2025-07-08 20:49 | ESHP_ITS ---
Documentation for date of: 07/08/25 HPI History of Present Illness History of present illness: Mr. Marti is a 70 y/o male with PMH of hypothyroidism, HTN, b/l inguinal hernia, and umbilical hernia who presents with several hours of sharp right inguinal pain with hernia that could not be reduced. Patient has had the b/l inguinal hernias for 2-3 years but he has not experienced pain like this before. He is usually able to reduce the hernias easily. Associated with nausea but no vomiting. Denies fevers, chills, chest pain/pressure, abdominal pain, paresthesias, urinary symptoms. Last BM was today, normal consistency w/o melena or hematochezia. No pain associated with left hernia, easily reducible. Able to tolerate PO intake. ED course: Afebrile. BP 150-160s/80s. Labs significant for WBC 12.3, hgb 16.8, Cl 109, total bili 2 (chronically elevated). UA negative for UTI. CT a/p showed left inguinal hernia containing colon, right incarcerated hernia with small bowel, SBO 2/2 incarcerated hernia. Given Zofran IV, morphine 4 mg IV, 1L NS. PMHx: Hypothyroidism, HTN, b/l inguinal hernias, umbilical hernias, prostate cancer s/p prostatectomy c/b urinary incontinence Allergies: Ibuprofen Home meds: Levothyroxine 100 mcg daily Lisinopril 10 mg daily SgHx: Fell on barbed pole as a child, s/p laparotomy Laparoscopic cholecystectomy with Blanquita 2017 Radical prostatectomy 2017 SHx: Denies smoking, EtOH, recreational drug use FHx: none reported Review of Systems Review of Systems Narrative Review of Systems: 14 point ROS negative other than HPI Exam Vital Signs Temp Pulse Resp BP Pulse Ox O2 Del Method 98.9 F 76 18 153/82 H 95 Room Air 07/08/25 20:39 07/08/25 20:39 07/08/25 20:39 07/08/25 20:39 07/08/25 20:39 07/08/25 20:39 Narrative Exam General: No acute distress, well nourished Eye: PERRL, EOMI, normal conjunctiva, no scleral icterus HENT: Normocephalic, atraumatic, normal hearing, moist oral mucosa Neck: Supple, non-tender, no JVD, no lymphadenopathy Lungs: Clear to auscultation bilaterally, non-labored respirations, symmetric chest rise, no use of accessory muscles Heart: Normal S1 and S2, no S3 or S4 appreciated. Normal rate and regular rhythm, no murmurs, rubs gallops, or edema. Peripheral pulses intact bilaterally, femoral pulses intact b/l Abdomen: Reducible umbilical hernia, non TTP. Palpable right inguinal mass, nonreducible, TTP, warm to touch, no overlying erythema appreciated, no open lesions. Palpable left inguinal mass, reducible, non TTP. Multiple healed abdominal scars. Soft, no abdominal distension Musculoskeletal: Normal range of motion and strength, no tenderness or swelling Skin: Skin is warm, dry, no rashes or lesions. Neurologic: Alert, awake and oriented x3. CN II-XII grossly intact. No focal neuro deficits. No signs of meningeal irritation noted. Psychiatric: Cooperative, appropriate mood and affect Results: Labs 07/09/25 08:46 07/09/25 08:46 Labs: Short CBC 07/08/25 Range/Units 18:01 WBC 12.3 H (3.8-10.6) Thou/mm3 Hgb 16.8 H (13.5-16.0) g/dL Hct 47.1 (41.0-53.0) % Plt Count 232 (140-440) Thou/mm3 BMP 07/08/25 18:01 Sodium 143 Potassium 3.9 Chloride 109 H Carbon Dioxide 23.1 BUN 10 Creatinine 0.9 Glucose 147 H Calcium 9.6 Liver Function 07/08/25 Range/Units 18:01 Total Bilirubin 2.0 H (0.3-1.2) mg/dL AST 19 (0-34) U/L ALT 15 (10-49) U/L Alkaline Phosphatase 95 (46-116) U/L Albumin 4.9 H (3.4-4.8) gm/dL Urine 07/08/25 Range/Units 18:46 Urine Color Yellow (Lt Yel-Yel) Urine Clarity Clear (Clear/Hazy) Urine pH 5.5 (5.0-7.0) Ur Specific [place] 1.026 (1.001-1.035) Urine Protein Negative (Neg - Trace) Urine Glucose (UA) Negative (Negative) Quality Measures Quality Measures VTE prophylaxis Advance care planning discussed with:: patient Medications Home Medications and Allergies Home Medications ?Medication ?Instructions ?Recorded ?Confirmed ?Type levothyroxine 100 mcg tablet 100 mcg PO QDAY 07/09/25 07/09/25 History lisinopril 10 mg tablet 10 mg PO QDAY 07/09/2507/09 History Allergies Allergy/AdvReac Type Severity Reaction Status Date / Time No Known Allergies Allergy Verified 07/08/25 17:23 Visit Medications Acetaminophen (Acetaminophen 325 Mg Tablet) 650 mg PO Q6H PRN PRN Reason: Fever >100.3 Stop: 08/07/25 20:31 Acetaminophen (Acetaminophen 325 Mg Tablet) 650 mg PO Q6H PRN PRN Reason: PAIN SCALE 1-3 (mild Stop: 08/07/25 20:31 Heparin Sodium (Porcine) (Heparin Sod Inj 5000 Unit/Ml Vial) 5,000 unit SC Q8HR GILSON Stop: 07/22/25 21:59 Sodium Chloride (Ns) 1,000 mls @ 100 mls/hr IV .Q10H GILSON Stop: 08/07/25 19:37 Last Admin: 07/08/25 20:26 Dose: 100 mls/hr Morphine Sulfate (Morphine Sulf Inj 4 Mg/Ml Vial) 2 mg IVP Q6HR PRN PRN Reason: pain 4-8 Stop: 07/13/25 20:35 Ondansetron HCl (Ondansetron Inj 2 Mg/Ml Inj 2 Ml) 4 mg IVP Q6H PRN; Protocol PRN Reason: NAUSEA OR VOMITING Stop: 08/07/25 20:31 Discontinued Medications Morphine Sulfate (Morphine Sulf Inj 4 Mg/Ml Vial) 4 mg IVP X1 ONE Stop: 07/08/25 19:40 Last Admin: 07/08/25 20:27 Dose: 4 mg Ondansetron HCl (Ondansetron Inj 2 Mg/Ml Inj 2 Ml) 4 mg IVP X1 ONE; Protocol Stop: 07/08/25 19:40 Last Admin: 07/08/25 20:26 Dose: 4 mg Assessment & Plan Plan Mr. Marti is a 70 y/o male with PMH of hypothyroidism, HTN, b/l inguinal hernia, and umbilical hernia who presents with several hours of sharp right inguinal pain with hernia that could not be reduced. Admitted for surgical management of right incarcerated inguinal hernia. #Incarcerated right inguinal hernia Patient developed sharp right inguinal pain around 4 PM 10/26, was not able to easily reduce the mass Palpable right inguinal mass, nonreducible, TTP, warm to touch, no overlying erythema appreciated, no open lesions Lactic acid 1.9 CT a/p: left inguinal hernia containing colon, right incarcerated hernia with small bowel, SBO 2/2 incarcerated hernia. Given Zofran IV, morphine 4 mg IV, 1L NS in ED Plan: - Consulted Dr. Farrar, plan for surgery tonight - NPO - Pain management: Tylenol PRN, morphine 2 mg IV q6h PRN #SBO i/s/o incarcerated right inguinal hernia Seen on CT Last BM earlier today, normal consistency. No vomiting, some nausea improved with Zofran Plan: - Surgery with Dr. Farrar as above #Left inguinal hernia #Umbilical hernia Reducible, non tender to palpation, no overlying warmth or erythema See above for CT findings Plan: - CTM for s/sx strangulation/incarceration #Hypothyroidism Plan: - Levothyroxine 100 mcg daily (home med) #Hypertension most likely 2/2 pain in ED Plan: - Pain management - Lisinopril 10 mg PO daily (home med) Checklist Dispo: Admit to med tele, plan for surgery tonight Diet: NPO Bowel Reg: n/a VTE ppx: heparin subQ (held for surgery) GI ppx: n/a Pain mgmt: Tylenol PRN, morphine 2 mg IV q6h Code status: full Plan discussed with Dr. Rojas and Dr. Ronna Garcia MD PGY1 Attending Provider Attestation/Addendum After examination of the patient and review of the clinical data I feel that this patient needs admission to the hospital for further treatment/evaluation. Plan of care discussed with patient and is in agreement. I Jos Friend MD, attest that I was physically present for kerns portions of evaluation, and examined patient, labs and imagings and plan of care were discussed with IM residents team, and I agree with the findings and plans documented above.
--- NOTE | 2025-07-08 20:55 | ESCONSULT_ITS ---
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 Patient states he has been aware of this inguinal hernia for the past 3 years, he is usually able to reduce it on its own but as of this morning he noticed pain to the area and that this time he was not able to reduce it. Because the pain persisted after several hours patient presented to the ER. He also notes nausea but has not vomited, did have a small bowel movement this afternoon. His last oral intake was at [address] is showing small bowel obstruction due to an incarcerated right inguinoscrotal hernia. In the ER atte mpts were made at reduction but the hernia remains incarcerated PMH: HTN, hypothyroidism, prostate CA PSH: Cholecystectomy, prostatectomy 2 years ago (patient reports having incontinence since then), laparotomy for trauma Meds: No antiplatelet or anticoagulation Allergies: NKDA Social history: Non-smoker Review of Systems Review of Systems ROS Unobtainable: All systems reviewed & no additional complaints except as documented Meds Home Medications and Allergies Home Medications ?Medication ?Instructions ?Recorded ?Confirmed ?Type Levothyroxine * (SYNTHROID *) 50 mcg PO QDAY #0 tabs 0 06/02/17 History Allergies Allergy/AdvReac Type Severity Reaction Status Date / Time No Known Allergies Allergy Verified 07/08/25 17:23 Exam Vital Signs Temp Pulse Resp BP Pulse Ox O2 Del Method 98.9 F 76 18 153/82 H 95 Room Air 07/08/25 20:39 07/08/25 20:39 07/08/25 20:39 07/08/25 20:39 07/08/25 20:39 07/08/25 20:39 Constitutional Constitutional: no acute distress Routine Respiratory Exam Respiratory: Present no resp distress Routine Exam Comments: Right inguinal swelling, area is firm and tender, no overlying skin changes, nonreducible. Left inguinal hernia is reducible with no overlying skin changes Results Results: Laboratory Laboratory results: results reviewed Results: Imaging CT scan - abdomen: report reviewed and image reviewed Assessment & Plan Plan 70M with HTN, hypothyroidism, history of prostatectomy for CA presenting with signs and symptoms of an incarcerated inguinoscrotal hernia. I explained benefits/risks of surgery including the possible need for bowel resection, risk of hernia recurrence and infection, risk of injury to nearby structures including bladder, nerves and blood vessels. I informed pt that if bowel resection is not necessary I will place a mesh with the goal of preventing recurrence. All questions were answered and patient expressed understanding
[2025-07-08 20:58] LABS: Lactate (Lactic Acid) 1.9 mMol/L (0.4-2.0)
--- NOTE | 2025-07-08 21:04 | PC.NURSE ---
REPORT WAS GIVEN TO GIS SOFTWARE DEVELOPER AT [facility] 2039. OR HERE PT TAKEN TO OR BY OR STAFF.
--- NOTE | 2025-07-08 23:28 | SUR.PHASEI ---
pt received to [facility]. awake and alert, denies pain and nausea. dressing to right inguinal cdi. fc draining to gravity. vss. breathing even and unlabored. report from nurse foster and dr hinkle.
--- NOTE | 2025-07-08 23:37 | PD.SUROPNT ---
Date of Procedure 07/08/25 Pre Op Diagnosis Incarcerated right inguinoscrotal hernia containing small bowel Post Op Diagnosis Same Procedure Reduction and repair of right inguinoscrotal hernia with mesh Findings Incarcerated small bowel which appeared dusky initially but returned to normal color after mesentery was freed, with appropriate peristalsis Procedure Description Patient has a 3-year history of inguinal hernia which he is able to reduce but since this morning noted that the right inguinal hernia was more painful and swollen and this time did not reduce despite multiple efforts. It also did not reduce in the ER and CT was consistent with incarcerated small bowel. 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 Patient expressed understanding and all questions were answered. Patient was brought to the operating room, SCDs were placed and general anesthesia was induced. He received preoperative antibiotics and a Coto catheter was placed. He was prepped and draped in the usual sterile fashion. After timeout the incision was planned approximately 1 cm superior to the pubic tubercle parallel to the inguinal ligament. An iliohypogastric nerve block was performed 1 cm medial and caudal to the right ASIS using half percent Marcaine. The planned incision was also infiltrated with half percent Marcaine. The incision was then created from 1cm superior to the pubic tubercle extending approximately 6 cm transversely. The subcutaneous tissue was divided with electrocautery until the external oblique was identified. The external oblique fascia was then incised with a #15 blade and this incision was continued medially to the external ring using Metzenbaum scissors. The hernia sac was encountered and using blunt dissection the spermatic cord was from the hernia sac. The hernia sac was opened and serosanguineous fluid was returned. The incarcerated small bowel was noted to be dusky in appearance though not necrotic. I did extend the hernia defect laterally to make sure that the mesentery was not incarcerated and also to visualize healthy bowel in case bowel resection was necessary. The affected small bowel was covered with a warm towel for several minutes and upon reexamination it was noted to be pink with appropriate peristalsis. After careful consideration I reduced the small bowel as it appeared healthy and viable. The hernia sac was ligated using a 2-0 chromic suture and a portion of it was removed and sent as specimen. During this process there were areas of bleeding on the hernia sac which were controlled with 0 silk ties. A Bard mesh was cut to size in order to cover the defect. The medial aspects were cut in a curved fashion and a tail was cut laterally to accommodate the spermatic cord. Using a 2-0 Prolene suture the mesh was affixed to the pubic tubercle. The inferior aspect of the mesh was secured to the shelving edge of the inguinal ligament using interrupted 2-0 Prolene sutures while the superior aspect of the mesh was sutured to the transversalis fascia using a running 2-0 Prolene suture. The tails of the mesh were then sutured together lateral to the cord structures. Counts were confirmed correct. The external oblique was reapproximated using 3-0 Vicryl suture in a running fashion. The wound was irrigated and hemostasis was ensured. Additional half percent Marcaine was infiltrated into the subcutaneous tissue for a total of 30 cc. The skin was closed in 2 layers with 2-0 Vicryl suture followed by 3-0 Vicryl sutures. The skin was then reinforced with juan f and covered with gauze and Tegaderm. Patient was extubated and brought to PACU in stable condition Pathology / specimen Other (Portion of inguinal hernia sac) Estimated Blood Loss 100 Surgeon Naila Farrar MD Surgical Staff Operation Date: 07/08/25 21:15 Case Staff Anesthesiologist: Harsh Barroso RNnursing unit clerk: Jan Villanueva
[2025-07-09] VITALS (17 sets, daily range): BP systolic 106–163; BP diastolic 62–94; PULSE 66–92; RESP 14–97; TEMP 36.6–37.3; O2SAT 95–99; BMI 25.4
--- NOTE | 2025-07-09 00:05 | SUR.PHASEI ---
report called to katarina arreguin. vss. breathing even and unlabored. denies pain and nausea. dressing remains cdi. fc draining to gravity. transported to room via [facility] [place].
--- NOTE | 2025-07-09 00:10 | PC.NURSE ---
Pt came in from OR, alert and oriented, has a flores draining well yellow colored urine. Pt has no C/O of pain at this time. Pt advised to keep pt NPO.
[2025-07-09] MEDS: LEVOTHYROXINE SODIUM 100 MCG TABLET PO (05:21)
[2025-07-09] MEDS: PNEUMOC 20-VAL CONJ-DIP CRM/PF 0.5 ML SYRINGE IMi (07:20)
[2025-07-09 09:26] LABS: Basophils # (Auto) 0.0 Thou/mm3 (0.0-0.2); Basophils % (Auto) 0 % (0-2.5); Eosinophils # (Auto) 0.0 Thou/mm3 (0.0-0.5); Eosinophils % (Auto) 0 % (0-10); Hematocrit 41.8 % (41.0-53.0); Hemoglobin 14.6 g/dL (13.5-16.0); Immature Granulocytes Auto 0.07 Thou/mm3 (0.00-0.00); Lymphocytes # (Auto) 1.0 Thou/mm3 (1.0-4.8); Lymphocytes % (Auto) 7 % (10-50); Mean Corpuscular HGB Conc 34.9 g/dl (31.0-37.0); Mean Corpuscular Hemoglobin 31.7 pg (25.0-35.0); Mean Corpuscular Volume 91 fL (80-100); Monocytes # (Auto) 0.9 Thou/mm3 (0.0-0.8); Monocytes % (Auto) 6 % (0-12); Neutrophils # (Auto) 12.8 Thou/mm3 (1.8-7.7); Neutrophils % (Auto) 86 % (37-80); Nucleated Red Blood Cell # 0.00 Thou/mm3 (0.00-0.00); Nucleated Red Blood Cell % 0 /100 WBC (0); Platelet Count 208 Thou/mm3 (140-440); RDW Standard Deviation 42.1 fL (35.1-43.9); Red Blood Count 4.61 Miln/mm3 (4.50-5.90); White Blood Count 14.8 Thou/mm3 (3.8-10.6)
[2025-07-09 09:48] LABS: Alanine Aminotransferase 28 U/L (10-49); Albumin, Serum 4.0 gm/dL (3.4-4.8); Albumin/Globulin Ratio 1.7 (1.2-2.2); Alkaline Phosphatase 80 U/L (46-116); Anion Gap 10 (7-16); Aspartate Amino Transferase 29 U/L (0-34); BUN/Creatinine Ratio 10 Ratio (12-20); Bilirubin,Total 2.8 mg/dL (0.3-1.2); Blood Urea Nitrogen 8 mg/dL (9-23); Calcium 8.8 mg/dL (8.3-10.6); Calcium (Corrected) 8.8 mg/dL (8.5-10.1); Carbon Dioxide 20.7 mMol/L (20.0-31.0); Chloride 110 mMol/L (98-107); Creatinine (Component) 0.8 mg/dL (0.6-1.3); Estimated Creatinine Clearance 84.3 mL/min (>60); Globulin 2.3 gm/dL (2.3-3.5); Glucose 155 mg/dL (74-106); Magnesium 2.0 mg/dL (1.6-2.6); Osmolality,Calculated 282 (275-295); Phosphorous 2.8 mg/dL (2.4-5.1); Potassium 4.3 mMol/L (3.4-5.1); Sodium 141 mMol/L (136-145); Total Protein 6.3 gm/dL (5.7-8.2); eGFR > 60 See Note
[2025-07-09] MEDS: INFLUENZA VIRUS QUADRIVALENT 0.5 ML SYRINGE IMi (12:22)
[2025-07-09] MEDS: MORPHINE SULF INJ 4 MG/ML VIAL 2 MG IVP (12:45)
[2025-07-09] MEDS: HEPARIN SOD INJ 5000 UNIT/ML VIAL SC ×2 (13:09→21:47)
--- NOTE | 2025-07-09 13:27 | PD.RESPRO ---
Documentation for date of: 07/09/25 Overnight admission secondary to small bowel obstruction, secondary to R. incarcerated inguinal hernia, which required surgical reduction. Patient is now s/p op day 1. Patient denied abdominal pain or distention. No bowel movement or flatulence since surgery. Continue clear liquids, advance as tolerated. General Surgery Consulted. Consider PT. Senior Resident Attestation: I have discussed the case with supervising physician and internal sales physician involved in the care of patient. I personally saw and examined patient and discussed the assessment and plan with the entire medical team, including attending. I agree with assessment and plan as documented below. - The patient's plan was discussed with attending Dr. Meg Snow MD PGY2 Internal Medicine Subjective Subjective Interval history: Patient examined bedside, labs reviewed. Tolerated the surgery well. No BM yet, no pain, no nausea or vomiting. Exam Vital Signs Temp Pulse Resp BP Pulse Ox O2 Del Method O2 Flow Rate 98.0 F 80 18 117/83 97 Room Air 2 07/09/25 08:00 07/09/25 08:23 07/09/25 08:00 07/09/25 08:23 07/09/25 08:00 07/09/25 08:00 07/08/25 23:22 Narrative Exam General: No acute distress, well nourished Eye: PERRL, EOMI, normal conjunctiva, no scleral icterus HENT: Normocephalic, atraumatic, normal hearing, moist oral mucosa Neck: Supple, non-tender, no JVD, no lymphadenopathy Lungs: Clear to auscultation bilaterally, non-labored respirations, symmetric chest rise, no use of accessory muscles Heart: Normal S1 and S2, no S3 or S4 appreciated. Normal rate and regular rhythm, no murmurs, rubs gallops, or edema. Peripheral pulses intact bilaterally, femoral pulses intact b/l Abdomen: Reducible umbilical hernia, non TTP. Palpable left inguinal mass, reducible, non TTP. Multiple healed abdominal scars. Soft, no abdominal distension. Incision CDI, appropriately TTP. Musculoskeletal: Normal range of motion and strength, no tenderness or swelling Skin: Skin is warm, dry, no rashes or lesions. Neurologic: Alert, awake and oriented x3. CN II-XII grossly intact. No focal neuro deficits. No signs of meningeal irritation noted. Psychiatric: Cooperative, appropriate mood and affect Objective Labs 07/09/25 08:46 07/09/25 08:46 Labs: Laboratory Results - last 24 hr 07/08/25 07/08/25 07/08/25 18:01 18:46 20:51 WBC 12.3 H RBC 5.27 Hgb 16.8 H Hct 47.1 MCV 89 MCH 31.9 MCHC 35.7 RDW Std Deviation 40.9 Plt Count 232 Neut % (Auto) 88 H Lymph % (Auto) 7 L [place] % (Auto) 5 Eos % (Auto) 0 Baso % (Auto) 0 Neut # (Auto) 10.8 H Lymph # (Auto) 0.9 L [place] # (Auto) 0.6 Eos # (Auto) 0.0 Baso # (Auto) 0.0 Immature Gran # (Auto) 0.04 H Absolute Nucleated RBC 0.00 Immature Gran % 0 Nucleated RBC % 0 PT 11.4 INR 1.1 APTT 27.5 Sodium 143 Potassium 3.9 Chloride 109 H Carbon Dioxide 23.1 Anion Gap 11 BUN 10 Creatinine 0.9 Estim Creat Clear Calc Not Performed. eGFR > 60 BUN/Creatinine Ratio 11 L Glucose 147 H Calculated Osmolality 286 Lactic Acid 1.9 Calcium 9.6 Corrected Calcium 9.6 Phosphorus Magnesium Total Bilirubin 2.0 H AST 19 ALT 15 Alkaline Phosphatase 95 Total Protein 7.6 Albumin 4.9 H Globulin 2.7 Albumin/Globulin Ratio 1.8 Lipase 48 Ur Collection Type Voided Urine Color Yellow Urine Clarity Clear Urine pH 5.5 Ur Specific [place] 1.026 Urine Protein Negative Urine Glucose (UA) Negative Urine Ketones Negative Urine Blood Trace Urine Nitrite Negative Urine Bilirubin Negative Urine Urobilinogen (Auto) 2.0 Ur Leukocyte Esterase Negative Urine RBC 2 Urine WBC < 1 Ur Squamous Epith Cells 2 Amorphous Crystals Present A Urine Bacteria None Ur Culture Indicated? Not Indicated 07/09/25 08:46 WBC 14.8 H RBC 4.61 Hgb 14.6 D Hct 41.8 MCV 91 MCH 31.7 MCHC 34.9 RDW Std Deviation 42.1 Plt Count 208 Neut % (Auto) 86 H Lymph % (Auto) 7 L [place] % (Auto) 6 Eos % (Auto) 0 Baso % (Auto) 0 Neut # (Auto) 12.8 H Lymph # (Auto) 1.0 [place] # (Auto) 0.9 H Eos # (Auto) 0.0 Baso # (Auto) 0.0 Immature Gran # (Auto) 0.07 H Absolute Nucleated RBC 0.00 Immature Gran % 1 H Nucleated RBC % 0 PT INR APTT Sodium 141 Potassium 4.3 Chloride 110 H Carbon Dioxide 20.7 Anion Gap 10 BUN 8 L Creatinine 0.8 Estim Creat Clear Calc 84.3 eGFR > 60 BUN/Creatinine Ratio 10 L Glucose 155 H Calculated Osmolality 282 Lactic Acid Calcium 8.8 Corrected Calcium 8.8 Phosphorus 2.8 Magnesium 2.0 Total Bilirubin 2.8 H D AST 29 ALT 28 Alkaline Phosphatase 80 Total Protein 6.3 Albumin 4.0 D Globulin 2.3 Albumin/Globulin Ratio 1.7 Lipase Ur Collection Type Urine Color Urine Clarity Urine pH Ur Specific [place] Urine Protein Urine Glucose (UA) Urine Ketones Urine Blood Urine Nitrite Urine Bilirubin Urine Urobilinogen (Auto) Ur Leukocyte Esterase Urine RBC Urine WBC Ur Squamous Epith Cells Amorphous Crystals Urine Bacteria Ur Culture Indicated? Quality Measures Quality Measures none Advance care planning discussed with:: other Assessment & Plan Assessment Current Active Medications: Generic Name Dose Route Start Last Admin Trade Name Freq PRN Reason Stop Dose Admin Acetaminophen 650 mg 07/08/25 20:32 Acetaminophen 325 Mg Tablet PO 08/07/25 20:31 Q6H PRN PAIN SCALE 1-3 (mild Heparin Sodium (Porcine) 5,000 unit 07/08/25 22:00 07/09/25 13:09 Heparin Sod Inj 5000 Unit/Ml Vial SC 07/22/25 21:59 5,000 unit Q8HR GILSON Administration Levothyroxine Sodium 100 mcg 07/09/25 06:00 07/09/25 05:21 Levothyroxine Sodium 100 Mcg Tablet PO 08/08/25 05:59 100 mcg ACBR GILSON Administration Lisinopril 10 mg 07/09/25 09:00 07/09/25 08:23 Lisinopril 2.5 Mg Tablet PO 08/08/25 08:59 10 mg QDAY GILSON Administration Morphine Sulfate 2 mg 07/08/25 20:36 07/09/25 12:45 Morphine Sulf Inj 4 Mg/Ml Vial IVP 07/13/25 20:35 2 mg Q6HR PRN Administration pain 4-8 Ondansetron HCl 4 mg 07/08/25 20:32 Ondansetron Inj 2 Mg/Ml Inj 2 Ml IVP 08/07/25 20:31 Q6H PRN NAUSEA OR VOMITING Protocol Pharmacy Consult 1 each 07/09/25 13:00 Pharmacy To Consult Pneumovacc XX 08/08/25 12:59 PRN PRN CONSULT Plan Mr. Marti is a 70 y/o male with PMH of hypothyroidism, HTN, b/l inguinal hernia, and umbilical hernia who presents with several hours of sharp right inguinal pain with hernia that could not be reduced. Admitted for surgical management of right incarcerated inguinal hernia. S/p repair, pending toleration of diet and return of normal bowel function patient will be discharged. #Reduction & Repair of R. inguinual Hernia w/ MESH (07/08/2025) #Small Bowel Obstruction, likely secondary to R. Incarcerated Iginual Hernia. #Small Bowel Obstruction, resolved. Patient developed sharp right inguinal pain around 4 PM 07/08, was not able to easily reduce the mass Palpable right inguinal mass, nonreducible, TTP, warm to touch, no overlying erythema appreciated, no open lesions Lactic acid 1.9 CT a/p: left inguinal hernia containing colon, right incarcerated hernia with small bowel, SBO 2/2 incarcerated hernia. Plan: -Monitor for pyrexia and bowel movements. Encourage ambulation - Clear Liquid Diet - Pain management: Tylenol PRN, [place] 5 morphine 2 mg IV q6h PRN - Pending BM for DC #Hypothyroidism Plan: - Levothyroxine 100 mcg daily (home med) #Hypertension most likely 2/2 pain in ED and history of hypertension with home medication of Lisinopril 10 mg qday. Plan: - Pain management - Lisinopril 10 mg PO daily (home med) #Incidental Finding, Advance Degenerative Disc Disease L5-S1 Checklist Dispo: Admit to med tele, plan for surgery tonight Diet: CLD Bowel Reg: n/a VTE ppx: heparin subQ GI ppx: n/a Pain mgmt: Tylenol PRN, morphine 2 mg IV q6h Code status: full Plan discussed with Dr. Weaver and Dr. Edy Farrell MD PGY1 Attending Provider Attestation/Addendum I have discussed and was present for the essential components of the history, physical examination, diagnosis, and treatment plan with the resident. I agree with the patient's care as documented by the resident and amended herein by me. Kevon Weaver DO. Although this document has been carefully reviewed, there may still be some phonetic and other typographical errors. These errors are purely grammatical due to imperfections in the software program and should not be construed in any way to compromise the substance of the patient's medical care during this visit. Admission
--- NOTE | 2025-07-09 14:38 | PC.SS ---
Patient Miguelangel Marti is a 70 Year old male admitted for Incarcerated Right Inguianal Hernia. SS met with patient at bedside to discuss discharge plan and verify demographic information. Patient reports he lives at home alone. Patient reports that prior to being admitted he did not utilize any source of DME to assist with ambulation. Patient is able to complete all ADL's independently. Choice of pharmacy, [facility]. PCP: Theron Pagan. At time of discharge patient will return back home. Family will provide transportation. Discharge plan: Home Next of kin: NicoleYris hendersonquez [phone]
--- NOTE | 2025-07-09 14:55 | PC.SS ---
SS follow up note; Patient had Surgery with Dr. Farrar, Post Op day #1. Patient need to have bowl movement before discharging home.
[2025-07-09 15:20] LABS: HIV (1&2) Antibody Rapid Non-Reactive
--- NOTE | 2025-07-09 16:38 | ESPR_ITS ---
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 Patient states he has been aware of this inguinal hernia for the past 3 years, he is usually able to reduce it on its own but as of this morning he noticed pain to the area and that this time he was not able to reduce it. Because the pain persisted after several hours patient presented to the ER. He also notes nausea but has not vomited, did have a small bowel movement this afternoon. His last oral intake was at [address] is showing small bowel obst ruction due to an incarcerated right inguinoscrotal hernia. In the ER attempts were made at reduction but the hernia remains incarcerated PMH: HTN, hypothyroidism, prostate CA PSH: Cholecystectomy, prostatectomy 2 years ago (patient reports having incontinence since then), laparotomy for trauma Meds: No antiplatelet or anticoagulation Allergies: NKDA Social history: Non-smoker Narrative: Pain controlled, no nausea but as of this morning had not yet passed gas or had a bowel movement, had appropriate Coto output which has since been removed, remaining afebrile Exam Vital Signs Temp Pulse Resp BP Pulse Ox O2 Del Method O2 Flow Rate 98.3 F 72 16 116/69 96 Room Air 2 07/09/25 12:00 07/09/25 16:34 07/09/25 16:34 07/09/25 12:00 07/09/25 12:00 07/09/25 08:00 07/08/25 23:22 Constitutional Constitutional: no acute distress Routine Respiratory Exam Respiratory: Present no resp distress Routine Exam Comments: Right groin dressing C/D/I, no swelling or erythema. Coto in place this morning with clear yellow urine Results Results: Laboratory Laboratory results: results reviewed Assessment & Plan Plan 70M with HTN, hypothyroidism, history of prostatectomy for CA presenting with signs and symptoms of an incarcerated inguinoscrotal hernia s/p emergent reduction and repair with mesh 07/09, gradually recovering CLD for now, await return of bowel function DC Coto, patient did note incontinence at baseline since prostatectomy Encourage OOB/ambulation PROCEDURES: Procedures Reduction and repair of right inguinoscrotal hernia with mesh
[2025-07-09 18:25] LABS: Syphilis Reactive (Nonreactive)
[2025-07-09 18:26] LABS: MHATP/TP-PA* See Sep Rpt
[2025-07-10] VITALS (13 sets, daily range): BP systolic 106–126; BP diastolic 60–70; PULSE 73–102; RESP 16–95; TEMP 36.3–36.9; O2SAT 95–97
--- NOTE | 2025-07-10 03:44 | PC.NURSE ---
Patient no BM yet but passing gas, Dr. Tovar was made aware to see if med for bowel management can be ordered. said he'll let the day team know.
[2025-07-10] MEDS: LEVOTHYROXINE SODIUM 100 MCG TABLET PO (05:23)
[2025-07-10] MEDS: HEPARIN SOD INJ 5000 UNIT/ML VIAL SC ×3 (05:24→20:59)
[2025-07-10 05:48] LABS: Basophils # (Auto) 0.0 Thou/mm3 (0.0-0.2); Basophils % (Auto) 0 % (0-2.5); Eosinophils # (Auto) 0.0 Thou/mm3 (0.0-0.5); Eosinophils % (Auto) 0 % (0-10); Hematocrit 39.6 % (41.0-53.0); Hemoglobin 13.6 g/dL (13.5-16.0); Immature Granulocytes Auto 0.05 Thou/mm3 (0.00-0.00); Lymphocytes # (Auto) 1.6 Thou/mm3 (1.0-4.8); Lymphocytes % (Auto) 15 % (10-50); Mean Corpuscular HGB Conc 34.3 g/dl (31.0-37.0); Mean Corpuscular Hemoglobin 31.6 pg (25.0-35.0); Mean Corpuscular Volume 92 fL (80-100); Monocytes # (Auto) 0.9 Thou/mm3 (0.0-0.8); Monocytes % (Auto) 8 % (0-12); Neutrophils # (Auto) 8.0 Thou/mm3 (1.8-7.7); Neutrophils % (Auto) 76 % (37-80); Nucleated Red Blood Cell # 0.00 Thou/mm3 (0.00-0.00); Nucleated Red Blood Cell % 0 /100 WBC (0); Platelet Count 162 Thou/mm3 (140-440); RDW Standard Deviation 42.7 fL (35.1-43.9); Red Blood Count 4.31 Miln/mm3 (4.50-5.90); White Blood Count 10.5 Thou/mm3 (3.8-10.6)
[2025-07-10 06:10] LABS: Alanine Aminotransferase 24 U/L (10-49); Albumin, Serum 3.9 gm/dL (3.4-4.8); Albumin/Globulin Ratio 2.1 (1.2-2.2); Alkaline Phosphatase 76 U/L (46-116); Anion Gap 9 (7-16); Aspartate Amino Transferase 25 U/L (0-34); BUN/Creatinine Ratio 11 Ratio (12-20); Bilirubin,Total 4.2 mg/dL (0.3-1.2); Blood Urea Nitrogen 9 mg/dL (9-23); Calcium 8.5 mg/dL (8.3-10.6); Calcium (Corrected) 8.6 mg/dL (8.5-10.1); Carbon Dioxide 25.7 mMol/L (20.0-31.0); Chloride 106 mMol/L (98-107); Creatinine (Component) 0.8 mg/dL (0.6-1.3); Estimated Creatinine Clearance 84.3 mL/min (>60); Globulin 1.9 gm/dL (2.3-3.5); Glucose 103 mg/dL (74-106); Magnesium 1.8 mg/dL (1.6-2.6); Osmolality,Calculated 279 (275-295); Phosphorous 2.3 mg/dL (2.4-5.1); Potassium 3.8 mMol/L (3.4-5.1); Sodium 141 mMol/L (136-145); Total Protein 5.8 gm/dL (5.7-8.2); eGFR > 60 See Note
[2025-07-10 09:57] LABS: Misc Send Out* See Sep Rpt
[2025-07-10 10:45] LABS: Chlamydia trachomatis PCR Negative (Not Detect); Neisseria Gonorrhoeae DNA PCR Negative (Not Detect); Trichomonas Negative (Negative)
--- NOTE | 2025-07-10 10:56 | XR_ITS ---
Examination: Abdomen sonogram, Limited Date and time of exam: July 10, 2025, 1154 hours INDICATIONS: Diagnosis hyperbilirubinemia and laboratory examination July 10, 2025. Technique: Real-time azar scale transabdominal sonographic images of the upper abdomen obtained. Findings: Absent gallbladder Common bile duct 0.9 cm no stones noted Pancreas obscured by bowel gas Liver 13.6 cm fatty infiltration Normal hepatopetal portal venous flow Patent IVC IMPRESSION: Common bile duct 0.9 cm no definite stones Given the patient's presentation, consider MRCP follow-up
--- NOTE | 2025-07-10 11:20 | PD.SURPROG ---
Documentation for date of: 07/10/25 Subjective Subjective Brief History: Spoke to pt with in-person bilingual interpreter 70M with HTN, hypothyroidism, history of prostate cancer presenting with right groin pain. Patient states he has been aware of this inguinal hernia for the past 3 years, he is usually able to reduce it on its own but as of this morning he noticed pain to the area and that this time he was not able to reduce it. Because the pain persisted after several hours patient presented to the ER. He also notes nausea but has not vomited, did have a small bowel movement this afternoon. His last oral intake was at [address] is showing small bowel obstruction due to an incarcerated right inguinoscrotal hernia. In the ER attempts were made at reduction but the hernia remains incarcerated PMH: HTN, hypothyroidism, prostate CA PSH: Cholecystectomy, prostatectomy 2 years ago (patient reports having incontinence since then), laparotomy for trauma Meds: No antiplatelet or anticoagulation Allergies: NKDA Social history: Non-smoker Narrative: Pain controlled, no nausea, tolerating clear liquids but has not yet had a BM, remaining afebrile with normal WBC Exam Vital Signs Temp Pulse Resp BP Pulse Ox O2 Del Method O2 Flow Rate 98 F 82 16 119/70 96 Room Air 2 07/10/25 07:00 07/10/25 08:23 07/10/25 07:28 07/10/25 08:23 07/10/25 07:00 07/10/25 07:00 07/08/25 23:22 Constitutional Constitutional: no acute distress Routine Respiratory Exam Respiratory: Present no resp distress Routine Exam Comments: right inguinal incision with juan f c/d/i, no erythema, no fluctuance or tenderness Results Results: Laboratory Laboratory results: results reviewed Assessment & Plan Plan 70M with HTN, hypothyroidism, history of prostatectomy for CA presenting with signs and symptoms of an incarcerated inguinoscrotal hernia s/p emergent reduction and repair with mesh 07/09, gradually recovering Reg diet OK for dc from my standpoint after having BM Tbili and order for US liver noted PROCEDURES: Procedures Reduction and repair of right inguinoscrotal hernia with mesh
[2025-07-10] MEDS: PEN G BENZ (Bicillin LA) 2.4 MMU/4 ML SYRG IM (11:35)
[2025-07-10 13:13] LABS: Hepatitis A Antibody IgM Non Reactive (Non React); Hepatitis B Core Antibody IgM Non Reactive (Non React); Hepatitis B Surface Antigen Non Reactive (Non React); Hepatitis C Antibody Non Reactive (Non React)
[2025-07-10] MEDS: NAPH,KPH MBDB 1 PACKET (1.5 GM) PO (13:36)
--- NOTE | 2025-07-10 14:45 | ESPR_ITS ---
Documentation for date of: 07/10/25 No overnight events. Patinet examined at bedside. Patient alert and oriented. Post op day 2 s/p Reduction and repair of R. inguinual hernia w/ mesh (07/08/2025). Advancing diet. Pending bowel movement, patient denied bowel movement. Syphillis positive. Penicillin G administered. Consult infectious disease, Dr. Martin, appreciate recommendations. Senior Resident Attestation: I have discussed the case with supervising physician and intern architect physician involved in the care of patient. I personally saw and examined patient and discussed the assessment and plan with the entire medical team, including attending. I agree with assessment and plan as documented below. - The patient's plan was discussed with attending Dr. Rosibel Snow MD PGY2 Internal Medicine Subjective Subjective Interval history: Patient examined bedside, labs reviewed. Recent lab work positive for syphillis, penicillin G administered. Denies NV today, is hungry but has not had any BMs yet. Exam Vital Signs Temp Pulse Resp BP Pulse Ox O2 Del Method O2 Flow Rate 98.5 F 82 18 125/63 97 Room Air 2 07/10/25 11:57 07/10/25 11:57 07/10/25 11:57 07/10/25 11:57 07/10/25 11:57 07/10/25 11:57 07/08/25 23:22 Narrative Exam General: No acute distress, well nourished Eye: PERRL, EOMI, normal conjunctiva, no scleral icterus HENT: Normocephalic, atraumatic, normal hearing, moist oral mucosa Neck: Supple, non-tender, no JVD, no lymphadenopathy Lungs: Clear to auscultation bilaterally, non-labored respirations, symmetric chest rise, no use of accessory muscles Heart: Normal S1 and S2, no S3 or S4 appreciated. Normal rate and regular rhythm, no murmurs, rubs gallops, or edema. Peripheral pulses intact bilaterally, femoral pulses intact b/l Abdomen: Reducible umbilical hernia, non TTP. Palpable left inguinal mass, reducible, non TTP. Multiple healed abdominal scars. Soft, no abdominal distension. Incision CDI, appropriately TTP. Musculoskeletal: Normal range of motion and strength, no tenderness or swelling Skin: Skin is warm, dry, no rashes or lesions. Neurologic: Alert, awake and oriented x3. CN II-XII grossly intact. No focal neuro deficits. No signs of meningeal irritation noted. Psychiatric: Cooperative, appropriate mood and affect Objective Labs 07/11/25 04:57 07/11/25 04:57 Labs: Laboratory Results - last 24 hr 07/09/25 07/09/25 07/10/25 08:46 20:15 04:58 WBC 10.5 RBC 4.31 L Hgb 13.6 Hct 39.6 L MCV 92 MCH 31.6 MCHC 34.3 RDW Std Deviation 42.7 Plt Count 162 D Neut % (Auto) 76 Lymph % (Auto) 15 [place] % (Auto) 8 Eos % (Auto) 0 Baso % (Auto) 0 Neut # (Auto) 8.0 H Lymph # (Auto) 1.6 [place] # (Auto) 0.9 H Eos # (Auto) 0.0 Baso # (Auto) 0.0 Immature Gran # (Auto) 0.05 H Absolute Nucleated RBC 0.00 Immature Gran % 1 H Nucleated RBC % 0 Sodium 141 Potassium 3.8 D Chloride 106 Carbon Dioxide 25.7 Anion Gap 9 BUN 9 Creatinine 0.8 Estim Creat Clear Calc 84.3 eGFR > 60 BUN/Creatinine Ratio 11 L Glucose 103 D Calculated Osmolality 279 Calcium 8.5 Corrected Calcium 8.6 Phosphorus 2.3 L Magnesium 1.8 Total Bilirubin 4.2 H D AST 25 ALT 24 Alkaline Phosphatase 76 Total Protein 5.8 Albumin 3.9 Globulin 1.9 L Albumin/Globulin Ratio 2.1 Syphilis Serology Reactive A Chlam trachomat DNA PCR Negative Hepatitis A IgM Ab Hep Bs Antigen Hep B Core IgM Ab Hepatitis C Antibody HIV 1&2 Antibody Rapid Non-Reactive N.gonorrhoeae DNA (PCR) Negative Trichomonas DNA Probe Negative 07/10/25 11:35 WBC RBC Hgb Hct MCV MCH MCHC RDW Std Deviation Plt Count Neut % (Auto) Lymph % (Auto) [place] % (Auto) Eos % (Auto) Baso % (Auto) Neut # (Auto) Lymph # (Auto) [place] # (Auto) Eos # (Auto) Baso # (Auto) Immature Gran # (Auto) Absolute Nucleated RBC Immature Gran % Nucleated RBC % Sodium Potassium Chloride Carbon Dioxide Anion Gap BUN Creatinine Estim Creat Clear Calc eGFR BUN/Creatinine Ratio Glucose Calculated Osmolality Calcium Corrected Calcium Phosphorus Magnesium Total Bilirubin AST ALT Alkaline Phosphatase Total Protein Albumin Globulin Albumin/Globulin Ratio Syphilis Serology Chlam trachomat DNA PCR Hepatitis A IgM Ab Non Reactive Hep Bs Antigen Non Reactive Hep B Core IgM Ab Non Reactive Hepatitis C Antibody Non Reactive HIV 1&2 Antibody Rapid N.gonorrhoeae DNA (PCR) Trichomonas DNA Probe Quality Measures Quality Measures none Advance care planning discussed with:: other Assessment & Plan Assessment Current Active Medications: Generic Name Dose Route Start Last Admin Trade Name Freq PRN Reason Stop Dose Admin Acetaminophen 650 mg 07/08/25 20:32 Acetaminophen 325 Mg Tablet PO 08/07/25 20:31 Q6H PRN PAIN SCALE 1-3 (mild Hydrocodone Bitart/Acetaminophen 1 tab 07/09/25 16:31 Hydrocodone/Apap 5/325 Tablet PO 07/14/25 16:30 Q6HR PRN Pain 4-6 Heparin Sodium (Porcine) 5,000 unit 07/08/25 22:00 07/10/25 05:24 Heparin Sod Inj 5000 Unit/Ml Vial SC 07/22/25 21:59 5,000 unit Q8HR GILSON Administration Levothyroxine Sodium 100 mcg 07/09/25 06:00 07/10/25 05:23 Levothyroxine Sodium 100 Mcg Tablet PO 08/08/25 05:59 100 mcg ACBR GILSON Administration Lisinopril 10 mg 07/09/25 09:00 07/10/25 08:23 Lisinopril 2.5 Mg Tablet PO 08/08/25 08:59 10 mg QDAY GILSON Administration Ondansetron HCl 4 mg 07/08/25 20:32 Ondansetron Inj 2 Mg/Ml Inj 2 Ml IVP 08/07/25 20:31 Q6H PRN NAUSEA OR VOMITING Protocol Pharmacy Consult 1 each 07/09/25 13:00 Pharmacy To Consult Pneumovacc XX 08/08/25 12:59 PRN PRN CONSULT Plan Mr. Marti is a 70 y/o male with PMH of hypothyroidism, HTN, b/l inguinal hernia, and umbilical hernia who presents with several hours of sharp right inguinal pain with hernia that could not be reduced. Admitted for surgical management of right incarcerated inguinal hernia. S/p repair, pending toleration of diet and return of normal bowel function patient will be discharged. #Reduction & Repair of R. inguinual Hernia w/ MESH (07/08/2025), post op Day 2 #Small Bowel Obstruction, likely secondary to R. Incarcerated Iginual Hernia. #Small Bowel Obstruction, resolved. Patient developed sharp right inguinal pain around 4 PM 07/08, was not able to easily reduce the mass Palpable right inguinal mass, nonreducible, TTP, warm to touch, no overlying erythema appreciated, no open lesions Lactic acid 1.9 CT a/p: left inguinal hernia containing colon, right incarcerated hernia with small bowel, SBO 2/2 incarcerated hernia. Plan: -Monitor for pyrexia and bowel movements. Encourage ambulation - Clear Liquid Diet - Pain management: Tylenol PRN, [place] 5 morphine 2 mg IV q6h PRN - Pending BM #Syphillis Plan: -Penicillin G administered (07/10) -Consult Infectious Disease, Dr. Martin, appreciate recommendations. #Hx of Hypothyroidism Plan: - Levothyroxine 100 mcg daily (home med) #Hx of Hypertension most likely 2/2 pain in ED and history of hypertension with home medication of Lisinopril 10 mg qday. Plan: - Pain management - Lisinopril 10 mg PO daily (home med) #Hx of Hyperbilirubinemia T. bili 4.2, baseline 2> Plan: -CTM - Liver US ordered #Incidental Finding, Advance Degenerative Disc Disease L5-S1 Checklist Dispo: Monitoring for bowel movement, awaiting infectious disease recommendation regarding positive syphilis Diet: CLD Bowel Reg: n/a VTE ppx: heparin subQ GI ppx: n/a Pain mgmt: Tylenol PRN, morphine 2 mg IV q6h Code status: full Plan discussed with Dr. Gleason and Dr. Edy Farrell MD PGY1 Attending Provider Attestation/Addendum I have seen and examined the patient. I was physically present for the [place] portions of the services provided including history, physical exam, diagnosis, treatment plans and orders. I agree with assessment and plan of care as documented by residents. Even though this this note was carefully revised there may still be minor errors in police academy instructor due to voice recognition software. Simone Gleason MD
--- NOTE | 2025-07-10 16:41 | PC.PT ---
PT eval only. Patient was xI with bed mobility, transfers, and ambulation with no AD. Patient is safe to ambulate to the bathroom and in the halls with no AD or staff. RN made aware.
--- NOTE | 2025-07-10 22:23 | PC.NURSE ---
Pt walked in hallways two separate occasions x2 around n/s nurses stations, family at side.
[2025-07-11] VITALS (12 sets, daily range): BP systolic 106–135; BP diastolic 64–74; PULSE 74–98; RESP 17–96; TEMP 36.6–38.1; O2SAT 95–99
[2025-07-11] MEDS: LEVOTHYROXINE SODIUM 100 MCG TABLET PO (05:15)
[2025-07-11] MEDS: HEPARIN SOD INJ 5000 UNIT/ML VIAL SC ×3 (05:15→21:09)
[2025-07-11 05:23] LABS: Basophils # (Auto) 0.0 Thou/mm3 (0.0-0.2); Basophils % (Auto) 0 % (0-2.5); Eosinophils # (Auto) 0.1 Thou/mm3 (0.0-0.5); Eosinophils % (Auto) 1 % (0-10); Hematocrit 37.8 % (41.0-53.0); Hemoglobin 13.2 g/dL (13.5-16.0); Immature Granulocytes Auto 0.06 Thou/mm3 (0.00-0.00); Lymphocytes # (Auto) 1.2 Thou/mm3 (1.0-4.8); Lymphocytes % (Auto) 13 % (10-50); Mean Corpuscular HGB Conc 34.9 g/dl (31.0-37.0); Mean Corpuscular Hemoglobin 31.7 pg (25.0-35.0); Mean Corpuscular Volume 91 fL (80-100); Monocytes # (Auto) 0.9 Thou/mm3 (0.0-0.8); Monocytes % (Auto) 9 % (0-12); Neutrophils # (Auto) 7.4 Thou/mm3 (1.8-7.7); Neutrophils % (Auto) 76 % (37-80); Nucleated Red Blood Cell # 0.00 Thou/mm3 (0.00-0.00); Nucleated Red Blood Cell % 0 /100 WBC (0); Platelet Count 156 Thou/mm3 (140-440); RDW Standard Deviation 41.4 fL (35.1-43.9); Red Blood Count 4.16 Miln/mm3 (4.50-5.90); White Blood Count 9.7 Thou/mm3 (3.8-10.6)
[2025-07-11 06:11] LABS: Alanine Aminotransferase 37 U/L (10-49); Albumin, Serum 3.9 gm/dL (3.4-4.8); Albumin/Globulin Ratio 2.0 (1.2-2.2); Alkaline Phosphatase 88 U/L (46-116); Anion Gap 11 (7-16); Aspartate Amino Transferase 32 U/L (0-34); BUN/Creatinine Ratio 16 Ratio (12-20); Bilirubin,Total 4.5 mg/dL (0.3-1.2); Blood Urea Nitrogen 13 mg/dL (9-23); Calcium 8.4 mg/dL (8.3-10.6); Calcium (Corrected) 8.5 mg/dL (8.5-10.1); Carbon Dioxide 24.4 mMol/L (20.0-31.0); Chloride 104 mMol/L (98-107); Creatinine (Component) 0.8 mg/dL (0.6-1.3); Estimated Creatinine Clearance 84.3 mL/min (>60); Globulin 2.0 gm/dL (2.3-3.5); Glucose 108 mg/dL (74-106); Magnesium 2.0 mg/dL (1.6-2.6); Osmolality,Calculated 278 (275-295); Phosphorous 2.8 mg/dL (2.4-5.1); Potassium 3.7 mMol/L (3.4-5.1); Sodium 139 mMol/L (136-145); Thyroid Stimulating Hormone 1.87 uIU/mL (0.55-4.78); Total Protein 5.9 gm/dL (5.7-8.2); eGFR > 60 See Note
--- NOTE | 2025-07-11 10:00 | XR_ITS ---
Examination: Abdomen AP single view Technique: AP portable supine abdomen, single view Exam date and time: July 11, 2025, 1018 hours INDICATIONS: Abdominal pain and distention this week. FINDINGS: Moderate stool throughout the colon No obstruction No free air. Surgical clips upper right abdomen IMPRESSION: Nonobstructive bowel gas pattern
[2025-07-11 10:05] LABS: Amphetamine/Methamp Scrn,U Negative (Negative); Barbiturate Screen,Urine Negative (Negative); Benzodiazepines Screen,Urine Negative (Negative); Benzoylecgonine Screen, Ur Negative (Negative); Fentanyl Screen,Urine Positive (Negative); Opiate Screen,Urine Positive (Negative); THC Screen,Urine Negative (Negative)
[2025-07-11 11:43] LABS: Bilirubin,Direct 1.2 mg/dL (0.0-0.3); LDH (Lactate Dehydrogenase) 224 U/L (120-246)
--- NOTE | 2025-07-11 12:18 | XR_ITS ---
MRI abdomen, without contrast. MRCP Date and time of exam: July 11, 2025, 1721 hours, comparison April 19, 2017 INDICATIONS: Abdominal distention this week, sharp right inguinal pain, elevated bilirubin on laboratory examination Technique: Multiple axial and coronal images of the abdomen have been obtained with the Siemens 1.5T MRI scanner. Images obtained included T1 weighted transverse images, T2-weighted transverse images, T2-weighted transverse images fat-suppressed, T2 weighted haste fat suppressed transverse images, T1 weighted images, in and out of phase images, T2-weighted coronal images, breath hold, T2 weighted haze coronal images as well as T2 weighted coronal thick slab images, MRCP. Findings: No focal liver lesions Gallbladder is not visualized Common hepatic duct 10 mm, common bile duct 6 mm, no common hepatic or common bile duct stones Pancreatic duct 2.5 mm No pancreatic mass or peripancreatic edema Spleen is not enlarged No ascites No hydronephrosis Aorta normal size IMPRESSION: No common hepatic or common bile duct stones Negative for pancreatitis No focal liver lesions
--- NOTE | 2025-07-11 12:21 | PC.SS ---
SS follow up note; Patient is pending Dr. Mikhail jean's. Patient will discharge home when medically cleared.
--- NOTE | 2025-07-11 14:48 | PD.IDPROG ---
Subjective Subjective Interval history: [facility] lab with neg rpr and pos fta, no titer provided . I called them. titer neg by phone. Exam Vital Signs Temp Pulse Resp BP Pulse Ox O2 Del Method O2 Flow Rate 98.0 F 91 17 111/74 98 Room Air 2 07/11/25 12:00 07/11/25 12:00 07/11/25 12:00 07/11/25 12:00 07/11/25 12:00 07/11/25 12:00 07/08/25 23:22 Narrative Exam non focal exam. abd benign Objective - Internal Medicine Labs 07/11/25 04:57 07/11/25 04:57 Labs: Laboratory Results - last 24 hr 07/09/25 07/11/25 07/11/25 08:46 04:57 09:30 WBC 9.7 RBC 4.16 L Hgb 13.2 L Hct 37.8 L MCV 91 MCH 31.7 MCHC 34.9 RDW Std Deviation 41.4 Plt Count 156 Neut % (Auto) 76 Lymph % (Auto) 13 [place] % (Auto) 9 Eos % (Auto) 1 Baso % (Auto) 0 Neut # (Auto) 7.4 Lymph # (Auto) 1.2 [place] # (Auto) 0.9 H Eos # (Auto) 0.1 Baso # (Auto) 0.0 Immature Gran # (Auto) 0.06 H Absolute Nucleated RBC 0.00 Immature Gran % 1 H Nucleated RBC % 0 Sodium 139 Potassium 3.7 Chloride 104 Carbon Dioxide 24.4 Anion Gap 11 BUN 13 Creatinine 0.8 Estim Creat Clear Calc 84.3 eGFR > 60 BUN/Creatinine Ratio 16 Glucose 108 H Calculated Osmolality 278 Calcium 8.4 Corrected Calcium 8.5 Phosphorus 2.8 Magnesium 2.0 Total Bilirubin 4.5 H Direct Bilirubin 1.2 H AST 32 ALT 37 Alkaline Phosphatase 88 Lactate Dehydrogenase 224 Total Protein 5.9 Albumin 3.9 Globulin 2.0 L Albumin/Globulin Ratio 2.0 TSH 1.87 Urine Opiates Screen Positive A Urine Fentanyl Screen Positive A Ur Barbiturates Screen Negative U Amphetamin/Meth Scrn Negative U Benzodiazepines Scrn Negative U Cocaine Metab Screen Negative U Marijuana (THC) Screen Negative T.pallidum Ab (MHA) See Sep Rpt Assessment & Plan A&P Narrative here for hernia repair. may have been over treated for pos local syphilis screen as test technically neg at [facility] as both parts need to be pos and titer low of fta no further rx needed unless rpr pos later on or if pt sexually active with new partner and tested. will screen hiv and hep c if not done already but no overt risk factors noted woulod repeat syphilis screen as outpt as it appears to be negative at [facility] (rpr neg, fta pos) so may have had syphilis a long time ago as fta stays pos a long time Time Spent With Patient Time: Total time spent is greater than 50% in coordination of care (as documented) at patient's floor/unit and/or counseling patient:
--- NOTE | 2025-07-11 15:11 | PD.RESPRO ---
Documentation for date of: 07/11/25 Subjective Subjective Interval history: Patient is progressing well day 2 s/p R inguinal hernia reduction and repair with mesh on 07/08. He is tolerating his regular diet well and does not report any nausea, vomiting, diarrhea, fever, chills, or fatigue. He had a bowel movement this morning that was well formed without dyschezia or hematochezia, and is still passing flatus. He denies any pain and is not in distress, but admits to mild discomfort upon pressing on his abdomen due to the bloating. Exam Vital Signs Temp Pulse Resp BP Pulse Ox O2 Del Method O2 Flow Rate 98.0 F 91 17 111/74 98 Room Air 2 07/11/25 12:00 07/11/25 12:00 07/11/25 12:00 07/11/25 12:00 07/11/25 12:00 07/11/25 12:00 07/08/25 23:22 Routine Respiratory Exam Respiratory: Present lungs clear, normal breath sounds and no resp distress Routine Cardiovascular Exam Cardiovascular: Present RRR, S1 and S2; Absent murmur Routine Abdominal Exam Abdominal: Present soft, normoactive bowel sounds and surgical scars (c/d/i) Comments: Slightly bloated with tympany Objective Labs 07/11/25 04:57 07/11/25 04:57 Labs: Laboratory Results - last 24 hr 07/09/25 07/11/25 07/11/25 08:46 04:57 09:30 WBC 9.7 RBC 4.16 L Hgb 13.2 L Hct 37.8 L MCV 91 MCH 31.7 MCHC 34.9 RDW Std Deviation 41.4 Plt Count 156 Neut % (Auto) 76 Lymph % (Auto) 13 [place] % (Auto) 9 Eos % (Auto) 1 Baso % (Auto) 0 Neut # (Auto) 7.4 Lymph # (Auto) 1.2 [place] # (Auto) 0.9 H Eos # (Auto) 0.1 Baso # (Auto) 0.0 Immature Gran # (Auto) 0.06 H Absolute Nucleated RBC 0.00 Immature Gran % 1 H Nucleated RBC % 0 Sodium 139 Potassium 3.7 Chloride 104 Carbon Dioxide 24.4 Anion Gap 11 BUN 13 Creatinine 0.8 Estim Creat Clear Calc 84.3 eGFR > 60 BUN/Creatinine Ratio 16 Glucose 108 H Calculated Osmolality 278 Calcium 8.4 Corrected Calcium 8.5 Phosphorus 2.8 Magnesium 2.0 Total Bilirubin 4.5 H Direct Bilirubin 1.2 H AST 32 ALT 37 Alkaline Phosphatase 88 Lactate Dehydrogenase 224 Total Protein 5.9 Albumin 3.9 Globulin 2.0 L Albumin/Globulin Ratio 2.0 TSH 1.87 Urine Opiates Screen Positive A Urine Fentanyl Screen Positive A Ur Barbiturates Screen Negative U Amphetamin/Meth Scrn Negative U Benzodiazepines Scrn Negative U Cocaine Metab Screen Negative U Marijuana (THC) Screen Negative T.pallidum Ab (A) See Sep Rpt Quality Measures Quality Measures none Assessment & Plan Assessment Current Active Medications: Generic Name Dose Route Start Last Admin Trade Name Freq PRN Reason Stop Dose Admin Acetaminophen 650 mg 07/08/25 20:32 Acetaminophen 325 Mg Tablet PO 08/07/25 20:31 Q6H PRN PAIN SCALE 1-3 (mild Hydrocodone Bitart/Acetaminophen 1 tab 07/09/25 16:31 Hydrocodone/Apap 5/325 Tablet PO 07/14/25 16:30 Q6HR PRN Pain 4-6 Heparin Sodium (Porcine) 5,000 unit 07/08/25 22:00 07/11/25 14:49 Heparin Sod Inj 5000 Unit/Ml Vial SC 07/22/25 21:59 5,000 unit Q8HR GILSON Administration Levothyroxine Sodium 100 mcg 07/09/25 06:00 07/11/25 05:15 Levothyroxine Sodium 100 Mcg Tablet PO 08/08/25 05:59 100 mcg ACBR GILSON Administration Lisinopril 10 mg 07/09/25 09:00 07/11/25 08:31 Lisinopril 2.5 Mg Tablet PO 08/08/25 08:59 10 mg QDAY GILSON Administration Ondansetron HCl 4 mg 07/08/25 20:32 Ondansetron Inj 2 Mg/Ml Inj 2 Ml IVP 08/07/25 20:31 Q6H PRN NAUSEA OR VOMITING Protocol Pharmacy Consult 1 each 07/09/25 13:00 Pharmacy To Consult Pneumovacc XX 08/08/25 12:59 PRN PRN CONSULT Plan Continue to monitor for bowel movements
--- NOTE | 2025-07-11 16:54 | ESPR_ITS ---
Documentation for date of: 07/11/25 No overnight events. Patient examined at bedside. NO pyrexia noted. One bowel movember reported. Penicillin G administered on 07/11/2025 given syphillus serology positive with Negative RPR and positive TP-PA. Pending infectious disease, consult for further recommendations. Following up with MRCP given total Bilirubin, 4.5 but asymptomatic. Senior Resident Attestation: I have discussed the case with supervising physician and multicultural internship physician involved in the care of patient. I personally saw and examined patient and discussed the assessment and plan with the entire medical team, including attending. I agree with assessment and plan as documented below. - The patient's plan was discussed with attending Dr. Rosibel Snow MD PGY2 Internal Medicine Subjective Subjective Interval history: DC pending MRCP findings due to history of chronically elevated Tbili however recent uptick on admission. Patient had BM today. Id consulted for syphillis recs. Exam Vital Signs Temp Pulse Resp BP Pulse Ox O2 Del Method O2 Flow Rate 100.6 F H 98 18 135/72 H 96 Room Air 2 07/11/25 16:00 07/11/25 16:00 07/11/25 16:00 07/11/25 16:00 07/11/25 16:00 07/11/25 16:00 07/08/25 23:22 Narrative Exam General: No acute distress, well nourished Eye: PERRL, EOMI, normal conjunctiva, no scleral icterus HENT: Normocephalic, atraumatic, normal hearing, moist oral mucosa Neck: Supple, non-tender, no JVD, no lymphadenopathy Lungs: Clear to auscultation bilaterally, non-labored respirations, symmetric chest rise, no use of accessory muscles Heart: Normal S1 and S2, no S3 or S4 appreciated. Normal rate and regular rhythm, no murmurs, rubs gallops, or edema. Peripheral pulses intact bilaterally, femoral pulses intact b/l Abdomen: Reducible umbilical hernia, non TTP. Palpable left inguinal mass, reducible, non TTP. Multiple healed abdominal scars. Soft, no abdominal distension. Incision CDI, appropriately TTP. Musculoskeletal: Normal range of motion and strength, no tenderness or swelling Skin: Skin is warm, dry, no rashes or lesions. Neurologic: Alert, awake and oriented x3. CN II-XII grossly intact. No focal neuro deficits. No signs of meningeal irritation noted. Psychiatric: Cooperative, appropriate mood and affect Objective Labs 07/12/25 04:47 07/12/25 04:47 Labs: Laboratory Results - last 24 hr 07/09/25 07/11/25 07/11/25 08:46 04:57 09:30 WBC 9.7 RBC 4.16 L Hgb 13.2 L Hct 37.8 L MCV 91 MCH 31.7 MCHC 34.9 RDW Std Deviation 41.4 Plt Count 156 Neut % (Auto) 76 Lymph % (Auto) 13 [place] % (Auto) 9 Eos % (Auto) 1 Baso % (Auto) 0 Neut # (Auto) 7.4 Lymph # (Auto) 1.2 [place] # (Auto) 0.9 H Eos # (Auto) 0.1 Baso # (Auto) 0.0 Immature Gran # (Auto) 0.06 H Absolute Nucleated RBC 0.00 Immature Gran % 1 H Nucleated RBC % 0 Sodium 139 Potassium 3.7 Chloride 104 Carbon Dioxide 24.4 Anion Gap 11 BUN 13 Creatinine 0.8 Estim Creat Clear Calc 84.3 eGFR > 60 BUN/Creatinine Ratio 16 Glucose 108 H Calculated Osmolality 278 Calcium 8.4 Corrected Calcium 8.5 Phosphorus 2.8 Magnesium 2.0 Total Bilirubin 4.5 H Direct Bilirubin 1.2 H AST 32 ALT 37 Alkaline Phosphatase 88 Lactate Dehydrogenase 224 Total Protein 5.9 Albumin 3.9 Globulin 2.0 L Albumin/Globulin Ratio 2.0 TSH 1.87 Urine Opiates Screen Positive A Urine Fentanyl Screen Positive A Ur Barbiturates Screen Negative U Amphetamin/Meth Scrn Negative U Benzodiazepines Scrn Negative U Cocaine Metab Screen Negative U Marijuana (THC) Screen Negative T.pallidum Ab (MHA) See Sep Rpt Quality Measures Quality Measures none Advance care planning discussed with:: other Assessment & Plan Assessment Current Active Medications: Generic Name Dose Route Start Last Admin Trade Name Freq PRN Reason Stop Dose Admin Acetaminophen 650 mg 07/08/25 20:32 Acetaminophen 325 Mg Tablet PO 08/07/25 20:31 Q6H PRN PAIN SCALE 1-3 (mild Hydrocodone Bitart/Acetaminophen 1 tab 07/09/25 16:31 Hydrocodone/Apap 5/325 Tablet PO 07/14/25 16:30 Q6HR PRN Pain 4-6 Heparin Sodium (Porcine) 5,000 unit 07/08/25 22:00 07/11/25 14:49 Heparin Sod Inj 5000 Unit/Ml Vial SC 07/22/25 21:59 5,000 unit Q8HR GILSON Administration Levothyroxine Sodium 100 mcg 07/09/25 06:00 07/11/25 05:15 Levothyroxine Sodium 100 Mcg Tablet PO 08/08/25 05:59 100 mcg ACBR GILSON Administration Lisinopril 10 mg 07/09/25 09:00 07/11/25 08:31 Lisinopril 2.5 Mg Tablet PO 08/08/25 08:59 10 mg QDAY GILSON Administration Ondansetron HCl 4 mg 07/08/25 20:32 Ondansetron Inj 2 Mg/Ml Inj 2 Ml IVP 08/07/25 20:31 Q6H PRN NAUSEA OR VOMITING Protocol Pharmacy Consult 1 each 07/09/25 13:00 Pharmacy To Consult Pneumovacc XX 08/08/25 12:59 PRN PRN CONSULT Plan Mr. Marti is a 70 y/o male with PMH of hypothyroidism, HTN, b/l inguinal hernia, and umbilical hernia who presents with several hours of sharp right inguinal pain with hernia that could not be reduced. Admitted for surgical management of right incarcerated inguinal hernia. S/p repair, pending toleration of diet and return of normal bowel function patient will be discharged. patient tolerating diet and had successful BM. Syphillis treated with penicillin G and recommendations by ID. MRCP revealed no stones. #Hyperbilirubinemia uptick 2->4 #Hx of Hyperbilirubinemia T. bili 4.2, baseline 2> Plan: -CTM -Liver US: CBD 0.9 cm no definite stones, consider MRCP follow up -MRCP: no common hepatic or common bile duct stones, negative for pancreatitis, no focal liver lesions #Reduction & Repair of R. inguinual Hernia w/ MESH (07/08/2025), post op Day 2 #Small Bowel Obstruction, likely secondary to R. Incarcerated Iginual Hernia. #Small Bowel Obstruction, resolved. Patient developed sharp right inguinal pain around 4 PM 07/08, was not able to easily reduce the mass Palpable right inguinal mass, nonreducible, TTP, warm to touch, no overlying erythema appreciated, no open lesions Lactic acid 1.9 CT a/p: left inguinal hernia containing colon, right incarcerated hernia with small bowel, SBO 2/2 incarcerated hernia. Plan: -Monitor for pyrexia and bowel movements. Encourage ambulation - Clear Liquid Diet - Pain management: Tylenol PRN, [place] 5 morphine 2 mg IV q6h PRN - BM successdul 07/11 - KUB no SBO #Syphillis Plan: -Penicillin G administered (07/10) -Consult Infectious Disease, Dr. Martin, appreciate recommendations. local syphilis screen as test technically neg at [facility] as both parts need to be pos and titer low of fta. no further rx needed unless rpr pos later on or if pt sexually active with new partner and tested. will screen hiv and hep c if not done already but no overt risk factors noted would repeat syphilis screen as outpt as it appears to be negative at [facility] (rpr neg, fta pos) so may have had syphilis a long time ago as fta stays pos a long time #Hx of Hypothyroidism Plan: - Levothyroxine 100 mcg daily (home med) #Hx of Hypertension most likely 2/2 pain in ED and history of hypertension with home medication of Lisinopril 10 mg qday. Plan: - Pain management - Lisinopril 10 mg PO daily (home med) #Incidental Finding, Advance Degenerative Disc Disease L5-S1 Checklist Dispo: Monitoring for bowel movement, awaiting infectious disease recommendation regarding positive syphilis Diet: Regular Bowel Reg: n/a VTE ppx: heparin subQ GI ppx: n/a Pain mgmt: Tylenol PRN, morphine 2 mg IV q6h Code status: full Plan discussed with Dr. Gleason and Dr. Edy Farrell MD PGY1 Attending Provider Attestation/Addendum I have seen and examined the patient. I was physically present for the [place] portions of the services provided including history, physical exam, diagnosis, treatment plans and orders. I agree with assessment and plan of care as documented by residents. Even though this this note was carefully revised there may still be minor errors in laboratory scientist due to voice recognition software. Simone Gleason MD
--- NOTE | 2025-07-11 18:05 | ESCONSULT_ITS ---
RE: NADIA GOMEZ : 1955 DATE OF CONSULTATION: 07/11/2025 REFERRING PHYSICIAN: Jos Valencia REASON FOR CONSULTATION: Positive syphilis test locally with a negative RPR at [facility] and but a positive fta and no sx or signs. The patient is single, lives by himself. He denies any other known exposures but may have been sexually active in the past as he is 70 years of age. PAST SURGICAL HISTORY: Surgical history includes recent hernia repair as noted and possible other surgeries as noted. PAST MEDICAL HISTORY: Medical problems are none. ALLERGIES: NOT NOTED. IMMUNIZATIONS: Immunizations unavailable and not pursued. FAMILY HISTORY: Not contributory. SOCIAL HISTORY: Not contributory. Physical exam is benign. The patient has a benign abdomen and seems to be recovering nicely from his hernia repair done the other day. ASSESSMENT: 1. Hernia repair. 2. Probable false positive RPR treated anyway as a precaution. RECOMMENDATIONS: No further treatment is needed. The patients usually need both tests to be positive. He can have a repeat test done as an outpatient usually done with RPR as a screen and if it is positive he can be re-treated at that time but he has no other exposures, no further testing is needed. I will see him again on a p.r.n. basis here in the hospital. Looks like an HIV test and Hep C test have been ordered and they are negative, that is good. DT: 15:19:32 TT: 17:30:00 Ref: [id number] - TID: [id number] [facility]
[2025-07-12] VITALS: BP 107/62; PULSE 83; PULSE 95; RESP 18; TEMP 37.3; O2SAT 96
[2025-07-12 04:00] VITALS: BP 113/64; PULSE 82; RESP 18; TEMP 37.3; O2SAT 97
[2025-07-12 05:42] VITALS: PULSE 82
[2025-07-12] MEDS: LEVOTHYROXINE SODIUM 100 MCG TABLET PO (06:01)
[2025-07-12] MEDS: HEPARIN SOD INJ 5000 UNIT/ML VIAL SC (06:02)
[2025-07-12 06:26] LABS: Basophils # (Auto) 0.0 Thou/mm3 (0.0-0.2); Basophils % (Auto) 0 % (0-2.5); Eosinophils # (Auto) 0.1 Thou/mm3 (0.0-0.5); Eosinophils % (Auto) 1 % (0-10); Hematocrit 36.9 % (41.0-53.0); Hemoglobin 13.0 g/dL (13.5-16.0); Immature Granulocytes Auto 0.03 Thou/mm3 (0.00-0.00); Lymphocytes # (Auto) 1.4 Thou/mm3 (1.0-4.8); Lymphocytes % (Auto) 14 % (10-50); Mean Corpuscular HGB Conc 35.2 g/dl (31.0-37.0); Mean Corpuscular Hemoglobin 31.7 pg (25.0-35.0); Mean Corpuscular Volume 90 fL (80-100); Monocytes # (Auto) 0.8 Thou/mm3 (0.0-0.8); Monocytes % (Auto) 8 % (0-12); Neutrophils # (Auto) 7.7 Thou/mm3 (1.8-7.7); Neutrophils % (Auto) 77 % (37-80); Nucleated Red Blood Cell # 0.00 Thou/mm3 (0.00-0.00); Nucleated Red Blood Cell % 0 /100 WBC (0); Platelet Count 178 Thou/mm3 (140-440); RDW Standard Deviation 40.0 fL (35.1-43.9); Red Blood Count 4.10 Miln/mm3 (4.50-5.90); White Blood Count 10.0 Thou/mm3 (3.8-10.6)
[2025-07-12 06:59] LABS: Alanine Aminotransferase 36 U/L (10-49); Albumin, Serum 3.6 gm/dL (3.4-4.8); Albumin/Globulin Ratio 1.6 (1.2-2.2); Alkaline Phosphatase 101 U/L (46-116); Anion Gap 12 (7-16); Aspartate Amino Transferase 27 U/L (0-34); BUN/Creatinine Ratio 17 Ratio (12-20); Bilirubin,Total 2.9 mg/dL (0.3-1.2); Blood Urea Nitrogen 12 mg/dL (9-23); Calcium 8.5 mg/dL (8.3-10.6); Calcium (Corrected) 8.8 mg/dL (8.5-10.1); Carbon Dioxide 23.3 mMol/L (20.0-31.0); Chloride 104 mMol/L (98-107); Creatinine (Component) 0.7 mg/dL (0.6-1.3); Estimated Creatinine Clearance 96.4 mL/min (>60); Globulin 2.2 gm/dL (2.3-3.5); Glucose 98 mg/dL (74-106); Magnesium 2.0 mg/dL (1.6-2.6); Osmolality,Calculated 277 (275-295); Phosphorous 3.0 mg/dL (2.4-5.1); Potassium 3.7 mMol/L (3.4-5.1); Sodium 139 mMol/L (136-145); Total Protein 5.8 gm/dL (5.7-8.2); eGFR > 60 See Note
[2025-07-12 08:00] VITALS: BP 106/68; PULSE 84; RESP 18; TEMP 37; O2SAT 97
--- NOTE | 2025-07-12 09:38 | ESDS_ITS ---
Planned Discharge Date 07/12/25 DS: Providers Provider Date of admission: 07/08/25 20:32 Primary care physician: Theron Pagan MD Admitting Provider: Jos Friend MD Attending Provider on Admission: Simone Gleason MD Consults: 07/08/25 19:38 Consult to General Surgery Stat Comment: Consulting Provider: Naila Farrar 07/10/25 09:15 Consult to Infectious Diseases Routine Comment: syphilus positive Consulting Provider: Herberth Martin 07/10/25 10:52 Referral Physical Therapy Routine Comment: Physician Instructions: Attending Provider on DC: Simone Gleason MD Discharging Provider: Simone Gleason MD DS: Diagnosis Problem List Completed Was Problem List Reviewed/Reconciled?: Yes Hospital Course Hospital Course Hospital course: Mr. Marti is a 70 y/o male with PMH of hypothyroidism, HTN, b/l inguinal hernia, and umbilical hernia who presents with several hours of sharp right inguinal pain with hernia that could not be reduced. Admitted for surgical management of right incarcerated inguinal hernia ED Course Summary: Afebrile. BP 150-160s/80s. Labs significant for WBC 12.3, hgb 16.8, Cl 109, total bili 2 (chronically elevated). UA negative for UTI. CT a/p showed left inguinal hernia containing colon, right incarcerated hernia with small bowel, SBO 2/2 incarcerated hernia. Given Zofran IV, morphine 4 mg IV, 1L NS. Hospital Course: In the hospital he was sent to the OR for emergent hernia reduction and repair with mesh. He tolerated the surgery well. He was found to have a positive syphillis test done in the ED which was treated with penicillin G; infectious diseases, Dr. Martin, was consulted - no further treatment because county syph[place] screen was negative, and followed up with further treatment needed unless rpr positive later on or if patient becomes sexually active with new partner. He was also found to have hyperbilirubinemia of 4. An MRCP showed no common hepatic or common bile duct stones, negative for pancreatitis, no focal liver lesions, and his T. bili downtrended following the imaging. With toleration of diet, KUB revealing no SBO pattern, and successful bowel movements patient deemed safe to discharge home. Discharge Instructions: ? Follow-up with general surgery, Dr. Farrar within 2 weeks - Continue the rest of your home medication as before - Follow up with your primary care physician within 1 week of discharge. If you do not have a primary care physician, please follow up with the [facility] Residents clinic ([phone]) ? If you experience any new, worsening or persistent symptoms either call your primary doctor, or dial 911 or present to the emergency department. #Hyperbilirubinemia uptick 2->4 #Hx of Hyperbilirubinemia #Reduction & Repair of R. inguinual Hernia w/ MESH (07/08/2025), post op Day 2 #Small Bowel Obstruction, likely secondary to R. Incarcerated Iginual Hernia. #Small Bowel Obstruction, resolved. #Syphillis #Hx of Hypothyroidism #Hx of Hypertension #Incidental Finding, Advance Degenerative Disc Disease L5-S1 Patient's plan and care discussed with my attending, Dr. Gleason, and supervising resident MD Ej Gentile MD Internal Medicine PGY-1 Status at Discharge Functional status at discharge: independent ambulation Overall status at discharge: patient is back to baseline Time Spent with Patient Time attestation: Total time spent providing and/or coordinating discharge services: 39 min Time spent: Greater than 30 minutes Exam Vital Signs Temp Pulse Resp BP Pulse Ox O2 Del Method O2 Flow Rate 99.2 F 82 18 113/64 97 Room Air 2 07/12/25 04:00 07/12/25 05:42 07/12/25 04:00 07/12/25 04:00 07/12/25 04:00 07/12/25 04:00 07/08/25 23:22 Narrative Exam General: No acute distress, well nourished Eye: PERRL, EOMI, normal conjunctiva, no scleral icterus HENT: Normocephalic, atraumatic, normal hearing, moist oral mucosa Neck: Supple, non-tender, no JVD, no lymphadenopathy Lungs: Clear to auscultation bilaterally, non-labored respirations, symmetric chest rise, no use of accessory muscles Heart: Normal S1 and S2, no S3 or S4 appreciated. Normal rate and regular rhythm, no murmurs, rubs gallops, or edema. Peripheral pulses intact bilaterally, femoral pulses intact b/l Abdomen: Reducible umbilical hernia, non TTP. Palpable left inguinal mass, reducible, non TTP. Multiple healed abdominal scars. Soft, no abdominal distension. Incision CDI, appropriately TTP, no surrounding erythema or oozing, healing appropriately. Musculoskeletal: Normal range of motion and strength, no tenderness or swelling Skin: Skin is warm, dry, no rashes or lesions. Neurologic: Alert, awake and oriented x3. CN II-XII grossly intact. No focal neuro deficits. No signs of meningeal irritation noted. Psychiatric: Cooperative, appropriate mood and affect Discharge Plan Plan Patient Disposition: HOME (Self Care) Patient condition on transfer: Stable Care Plan Goals: -Please follow up with your primary care doctor liver function panel within 1 week of discharge ? Follow-up with general surgery, Dr. Farrar within 2 weeks - Continue the rest of your home medication as before - Follow up with your primary care physician within 1 week of discharge. If you do not have a primary care physician, please follow up with the [facility] Residents clinic ([phone]) ? If you experience any new, worsening or persistent symptoms either call your primary doctor, or dial 911 or present to the emergency department .-Por favor, programe cosme prueba de funci?n hep?silver con durham m?dico de cabecera dentro de la semana posterior al annabelle. ? Programe cosme yony de seguimiento con el Dr. Farrar, cirujano general, dentro de las dos semanas siguientes. ? Contin?e con el maximus de durham medicaci?n habitual. ? Programe cosme yony de seguimiento con durham m?dico de cabecera dentro de la semana posterior al annabelle. Si no tiene un m?dico de cabecera, comun?quese con la cl?lesvia de residentes del [facility] ([phone]). ? Si presenta alg?n s?ntoma nuevo, un empeoramiento o s?ntomas persistentes, llame a durham m?dico de cabecera, al 911 o dir?olga lidia al servicio de urgencias. Prescriptions/Referrals Prescriptions/Med Rec: New levothyroxine 100 mcg Tablet 100 mcg PO ACBR 30 Days Qty: 30 2RF tramadol 25 mg tablet 25 mg PO QDAY PRN (Reason: Moderate Pain ) 4 Days Qty: 4 0RF ondansetron HCl 4 mg tablet 4 mg PO QDAY PRN (Reason: nausea and vomiting) 4 Days Qty: 4 0RF Continued lisinopril 10 mg tablet 10 mg PO QDAY Discontinued levothyroxine 100 mcg tablet 100 mcg PO QDAY Referrals: Theron Pagan MD [Primary Care Provider, Family Practice] Naila Farrar MD [Physician, General Surgery] Referral Note: You will receive a message to confirm a follow-up appt with me in 2 weeks Outpatient Orders (i.e. Home Health, Labs, Imaging): Liver Panel (Routine) Location: None Selected Ordered By: Grace Snow Patient/Caregiver Discharge Instructions Discharge Activity: activity as tolerated Other Discharge Activity Instructions:: Avoid lifting objects >10lbs for 6 weeks You may shower, it is ok to get incision wet, pat dry after Avoid bathing or swimming for 2 weeks If you develop worsening pain, nausea/vomiting, fever or concerns about the inci patrick site please seek care in ER Education Materials: Checking Your Own Blood Pressure, Controlling High Blood Pressure, Hernia Repair Surgery Print Language: Estonian Stand Alone Forms: [employer]qua Award Info., Patient Portal Info Letter Discharge Order Discharge Orders: Discharge (Routine); Ordered 07/12/25 Ordered By: Grace Snow Quality Discharge Quality Measures VTE prophylaxis MD Attestestation MD Attestation I have seen and examined the patient. I was physically present for the kerns portions of the services provided including history, physical exam, diagnosis, treatment plans and orders. I agree with assessment and plan of care as documented by residents. Even though this this note was carefully revised there may still be minor errors in cath lab radiology technician due to voice recognition software. Simone Gleason MD
[2025-07-12 11:13] VITALS: PULSE 75
[2025-07-12 12:00] VITALS: BP 113/75; PULSE 74; PULSE 88; RESP 14; TEMP 36.6; O2SAT 97
--- NOTE | 2025-07-12 12:55 | PC.NURSE ---
Brother at bedside discharge instructions given pt ready to dc now. Verified with MD Farrar per md pulliam with dc and f/u in [address] Farrar contact info given to pt.
== END 2025-07-12 13:08 | disposition home or self-care (01) | DRG 228 ==
LOC: SERX 20:07 → SERHOLD 21:01 → S3NX 07-09 00:17
PROVIDERS: Nurse Practitioner Family; Registered Nurse General Practice; Student in an Organized Health Care Education/Training Program; Surgery; Admitting Provider Student in an Organized Health Care Education/Training Program; Emergency Provider Emergency Medicine; PCP Family Medicine; Visit Provider Student in an Organized Health Care Education/Training Program
DX: K40.30 Unilateral inguinal hernia, with obstruction, without gangrene, not specified as recurrent (principal); M51.379 Other intervertebral disc degeneration, lumbosacral region without mention of lumbar back pain or lower extremity pain; E03.9 Hypothyroidism, unspecified; I10 Essential (primary) hypertension; Z85.46 Personal history of malignant neoplasm of prostate; Z90.79 Acquired absence of other genital organ(s); Z79.890 Hormone replacement therapy; Z79.899 Other long term (current) drug therapy
CPT/HCPCS: 36415; 71045; 74018; 74176; 74181; 76705; 80053; 80074; 80307; 81001; 82248; 83605; 83615; 83690; 83735; 84100; 84443; 85025; 85610; 85730; 86703; 86780; 87491; 87591; 87661; 90677; 90686; 93005; 93225; 97161; 99283; A4217; A4649; C1781; J0131; J0561; J0694; J1100; J1644; J2270; J2371; J2405; J2704; J2710; J3010; J3490; J7030; A9270; J1596; J1805; J9060

== ENCOUNTER 2025-07-23 13:13 | Outpatient (AMB) | payer MEDICAID, SELFPAY ==
[2025-07-23 13:24] VITALS: BP 139/69; PULSE 68; RESP 18; TEMP 36.4; O2SAT 98; BMI 24.0
--- NOTE | 2025-07-23 13:24 | GSCOFFNT_ITS ---
Vital Signs - Gen Srg Clinic 07/23/25 13:24 Height 1.73 m Height Method Measured Weight 71.809 kg Weight Measurement Method Standing Scale BMI 24.0 BP 139/69 H Blood Pressure Source Automatic Cuff Blood Pressure Location Left Upper Arm Position Sitting Respiration 18 Pulse 68 Pulse Source Monitor Temp 97.6 F Temp Source Temporal Artery Scan Pulse Oximetry (%) 98 Oxygen Delivery Method Room Air Med/Allergies Allergies & Medications Allergies No Known Allergies Allergy (Verified 07/23/25 13:26) Medication Reconciliation lisinopril 10 mg tablet 10 mg PO QDAY 07/09/25 [History Confirmed 07/23/25] levothyroxine 100 mcg tablet 100 mcg PO ACBR 30 days #30 tabs 07/11/25 [Rx Confirmed 07/23/25] MA Intake Visit Data Collection New Patient or Established: Established Patient (seen at [facility] within 3 years) Seen by Clinical Staff ONLY (RN/MA): No Reason for Visit:: F/U HERNIA Pain Present Currently: No Pain Scale Used: Ley-Horvath/Numerical Knurling Machine Tender Required: Yes PCP or OBGYN visit in last 3 months: Yes Hx Now: No Do You Feel Safe at Home: Yes Authorities Contacted: N/A Smoking Status Smoking Status: Never smoker Immunization / Flu Flu Vaccine in the Last 12 Months: No Flu Vaccine Exclusion Criteria: Already Received Past Medical History Past Medical History NEUROLOGIC: Negative Seizures CARDIAC: Positive Hypercholesterolemia; Negative Congestive Heart Failure RESPIRATORY: Negative Chronic Obstructive Pulmonary Disease (COPD) GENITOURINARY: Negative Renal Disease ENDOCRINE: Positive Hypothyroidism; Negative Diabetes Mellitus Type 1 or Diabetes Mellitus Type 2 OTHER HISTORY: Positive Lung Cancer; Negative Blood Transfusions or Anesthesia Reactions Family History OTHER FAMILY HX: No known family history Social History SMOKING STATUS: Smoking status: Never smoker ALCOHOL: Alcohol Intake: Former HOUSING: Housing: House LIVES WITH: Lives With: Alone HPI HPI Narrative 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 Overall he is doing well, only complaining of firmness over his surgical site. He only admits to 2/10 pain over the L inguinal hernia and umbilical hernia on palpation, or strenuous activity but says that the pain quickly subsides afterward. He does not report any pain or drainage from the surgical site, denies NVD, constipation, pencil thin stools, fever, chills, or anorexia. He has also not had a colonoscopy before, but would like some time to consider moving forward with one. He also is not interested in pursuing umbilical or left inguinal hernia surgery at this time ROS Review of Systems Systems Reviewed: All systems reviewed, normal except as documented Objective/Exam General Limitations: no limitations General Appearance: alert, in no apparent distress, comfortable and cooperative Resp Respiratory exam: Absent respiratory distress Abdominal Abdominal exam: Present soft, hernia (umbilical and L inguinal, both reducible) and scar (R inguinal incision c/d/i, mild induration, no fluctuance or erythema); Absent distention, tenderness, guarding or rigidity Assessment & Plan Diagnosis / Problem List (1) Incarcerated inguinal hernia: Status: Acute Assessment & Plan: 70M with PMH of prostate cancer, umbilical hernia, and bilateral hernias presenting to the clinic 2 weeks s/p emergent R inguinal reduction and repair with mesh. He is feeling well and states that the surgical site is healing well without drainage or pain. Plan: Follow up in 4 weeks Advanced Care Planning Advance care planning discussed with:: other Office Procedures GNS Level of Care Nursing/Assessment Patient Status: Established Patient Nursing Assessment/Reassesment: Medication Reconciliation, Update PMH in EMR and Vital Signs Coordination of Care: Complex Care and Chronic Disease 1-5, Education Complex Pt/Fam, Consent,records obtained, informed consent, Results/Orders obtained and Staff clarify orders Established Patient Charge Established Patient Point Assignment: 95 Established Patient Point Charge: EP Level 3 (80-115) Patient Portal Questionaires Social History Living Situation History Housing: House Tobacco History Smoking Status: Never smoker Alcohol History Alcohol Intake: Former Domestic Abuse History Do You Feel Safe at Home: Yes Review of Systems Report any current symptoms Only answer those that you have currently: Past Medical History Past Medical History Have you ever been diagnosed with any of the following: Neurological Problems Seizures: No Cardiology Problems Hypercholesterolemia: Yes Congestive Heart Failure: No Respiratory Problems Chronic Obstructive Pulmonary Disease (COPD): No Genital/Urinary Problems Renal Disease: No Endocrine Problems Diabetes Mellitus Type 1: No Diabetes Mellitus Type 2: No Hypothyroidism: Yes Other Problems Blood Transfusions: No Anesthesia Reactions: No Lung Cancer: Yes
== END 2025-07-23 13:58 | disposition home or self-care (01) ==
PROVIDERS: PCP Family Medicine; Referring Provider Family Medicine; Supervising Provider Surgery; Visit Provider Surgery
DX: K40.30 Unilateral inguinal hernia, with obstruction, without gangrene, not specified as recurrent (principal); Z09 Encounter for follow-up examination after completed treatment for conditions other than malignant neoplasm
CPT/HCPCS: 99213; G0463

== ENCOUNTER 2025-08-20 13:19 | Outpatient (AMB) | payer MEDICAID, SELFPAY ==
[2025-08-20 13:44] VITALS: BP 136/77; PULSE 80; RESP 18; TEMP 36.7; O2SAT 98; BMI 24.6
--- NOTE | 2025-08-20 13:44 | PD.GSCLVISIT ---
Vital Signs - Gen Srg Clinic 08/20/25 13:44 Height 1.73 m Height Method Measured Weight 73.68 kg Weight Measurement Method Standing Scale BMI 24.6 BP 136/77 H Blood Pressure Source Automatic Cuff Blood Pressure Location Left Upper Arm Position Sitting Respiration 18 Pulse 80 Pulse Source Monitor Temp 98.0 F Temp Source Temporal Artery Scan Pulse Oximetry (%) 98 Oxygen Delivery Method Room Air Med/Allergies Allergies & Medications Allergies No Known Allergies Allergy (Verified 08/20/25 13:45) Medication Reconciliation lisinopril 10 mg tablet 10 mg PO QDAY 07/09/25 [History Confirmed 08/20/25] levothyroxine 100 mcg tablet 100 mcg PO ACBR 30 days #30 tabs 07/11/25 [Rx Confirmed 08/20/25] MA Intake Visit Data Collection New Patient or Established: Established Patient (seen at [facility] within 3 years) Seen by Clinical Staff ONLY (RN/MA): No Reason for Visit:: 4 WEEK F/U HERNIA Pain Present Currently: No Pain Scale Used: Ley-Horvath/Numerical Bottom Filler Required: Yes PCP or OBGYN visit in last 3 months: Yes Hx Now: No Do You Feel Safe at Home: Yes Authorities Contacted: N/A Smoking Status Smoking Status: Never smoker Immunization / Flu Flu Vaccine in the Last 12 Months: No Flu Vaccine Exclusion Criteria: Refused by Patient Past Medical History Past Medical History NEUROLOGIC: Negative Seizures CARDIAC: Positive Hypercholesterolemia; Negative Congestive Heart Failure RESPIRATORY: Negative Chronic Obstructive Pulmonary Disease (COPD) GENITOURINARY: Negative Renal Disease ENDOCRINE: Positive Hypothyroidism; Negative Diabetes Mellitus Type 1 or Diabetes Mellitus Type 2 OTHER HISTORY: Positive Lung Cancer; Negative Blood Transfusions or Anesthesia Reactions Social History SMOKING STATUS: Smoking status: Never smoker ALCOHOL: Alcohol Intake: Former HOUSING: Housing: House LIVES WITH: Lives With: Alone HPI HPI Narrative 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 Pt states he still has some discomfort at the surgical site and notes it feels hard but is not bulging like before. He denies nausea, is not taking any pain medications and is eating well and having regular bladder and bowel function. He does have more discomfort from the left inguinal hernia though and would like to have surgery ROS Review of Systems Systems Reviewed: All systems reviewed, normal except as documented Objective/Exam General General Appearance: alert, cooperative and well groomed Resp Respiratory exam: Absent respiratory distress Abdominal Abdominal exam: Present incision (R inguinal incision with induration, no erythema, no fluctuance and no sign of recurrence) and hernia Assessment & Plan Diagnosis / Problem List (1) Reducible left inguinal hernia: Status: Acute Assessment & Plan: 70M with hx of prostate CA, R inguinal hernia that was incarcerated requiring urgent repair now requesting elective repair of left inguinal hernia. I explained risks of surgery including infection, postoperative pain, and hernia recurrence. All questions were answered and pt is agreeable to proceeding (2) Encounter for screening colonoscopy: Status: Acute Assessment & Plan: As pt has never had one I recommended screening colonoscopy and explained benefits/risks including bleeding, perforation requiring emergency surgery and/or the potential of needing to abort prematurely for safety. All questions were answered and pt is agreeable to proceeding Advanced Care Planning Advance care planning discussed with:: other Office Procedures GNS Level of Care Nursing/Assessment Patient Status: Established Patient Nursing Assessment/Reassesment: Medication Reconciliation, Update PMH in EMR and Vital Signs Coordination of Care: Complex Care and Chronic Disease 1-5, Education Complex Pt/Fam, Consent,records obtained, informed consent, Results/Orders obtained and Staff clarify orders Special Needs: Language special needs Established Patient Charge Established Patient Point Assignment: 95 Established Patient Point Charge: EP Level 3 (80-115) Patient Portal Questionaires Social History Living Situation History Housing: House Tobacco History Smoking Status: Never smoker Alcohol History Alcohol Intake: Former Domestic Abuse History Do You Feel Safe at Home: Yes Review of Systems Report any current symptoms Only answer those that you have currently: Past Medical History Past Medical History Have you ever been diagnosed with any of the following: Neurological Problems Seizures: No Cardiology Problems Hypercholesterolemia: Yes Congestive Heart Failure: No Respiratory Problems Chronic Obstructive Pulmonary Disease (COPD): No Genital/Urinary Problems Renal Disease: No Endocrine Problems Diabetes Mellitus Type 1: No Diabetes Mellitus Type 2: No Hypothyroidism: Yes Other Problems Blood Transfusions: No Anesthesia Reactions: No Lung Cancer: Yes
== END 2025-08-20 15:03 | disposition home or self-care (01) ==
PROVIDERS: PCP Family Medicine; Referring Provider Family Medicine; Supervising Provider Surgery; Visit Provider Surgery
DX: K40.90 Unilateral inguinal hernia, without obstruction or gangrene, not specified as recurrent (principal); Z85.46 Personal history of malignant neoplasm of prostate; Z12.11 Encounter for screening for malignant neoplasm of colon
CPT/HCPCS: 99213; G0463